=== PATIENT | female | born 1940 | race Two or more races ===

== ENCOUNTER 2018-10-19 17:53 | Emergency (ER) | payer MEDICARE, OTHER ==
[~2018-10-19] VITALS: Ht 162.6 cm; Wt 54.4 kg
--- NOTE | 2018-10-19 18:10 | NUR ---
PT BIB DAUGHTER C/O ZHOU "was seen by Home Health RN and BP high" BP 190/103, PT IS AAOX3, NOT IN RESPIRATORY DISTRESS, KEPT RESTED AND COMFORTABLE, SEEN AND EXAMINE BY DR. PRADO. WILL CONTINUE TO MONITOR.
--- NOTE | 2018-10-19 18:20 | NUR ---
EKG DONE BY CREPE BOX TENDER, LABS DRAWNED AND SENT TO LAB. AWAITING RESULTS.
[2018-10-19 18:25] LABS: BASOPHILS # (AUTO) 0.1 /CMM (0.0-0.2); BASOPHILS % (AUTO) 1.3 % (0.0-2.0); EOSINOPHILS % (AUTO) 3.3 % (0.0-6.0); HEMATOCRIT 31 % (33-45); LYMPHOCYTES # (AUTO) 3.3 /CMM (0.8-4.8); LYMPHOCYTES % (AUTO) 34.6 % (20.0-44.0); MEAN CORPUSCULAR HGB CONC 33 g/dl (31.0-36.0); MEAN CORPUSCULAR VOLUME 90 fL (82-100); MONOCYTES # (AUTO) 0.7 /CMM (0.1-1.30); MONOCYTES % (AUTO) 7.7 % (2.0-12.0); NEUTROPHILS # (AUTO) 5.1 /CMM (1.8-8.9); NEUTROPHILS % (AUTO) 53.1 % (43.0-81.0); PLATELET COUNT (AUTO) 361 /CMM (150-450); RED BLOOD CELL COUNT(AUTO) 3.37 MIL/uL (4.0-5.2); WHITE BLOOD COUNT (AUTO) 9.6 K/uL (4.3-11.0)
[2018-10-19 18:34] LABS: CALCIUM, SERUM 6.8 mg/dL (8.5-10.1); CARBON DIOXIDE 26 mmol/L (21-32); CHLORIDE 99 mmol/L (98-107); CREATININE 3.7 mg/dL (0.6-1.3); GLUCOSE 100 mg/dL (74-106); POTASSIUM 3.6 mmol/L (3.5-5.1); SODIUM SERUM 134 mmol/L (136-145); UREA NITROGEN, BLOOD 61 mg/dL (7-18)
--- NOTE | 2018-10-19 19:25 | NUR ---
LATEST BP 179/87 DR. PRADO AWARE.
--- NOTE | 2018-10-19 19:26 | NUR ---
REPORT GIVEN TO SURVEILLANCE OBSERVER FOR MARIE.
[2018-10-19] MEDS ORDERED: KETOROLAC TROMETHAMINE INJ 30 MG/ML VIAL ONE (19:36)
[2018-10-19] MEDS ORDERED: METOCLOPRAMIDE HCL 10 MG/2 ML VIAL ONE (19:36)
--- NOTE | 2018-10-19 19:47 | NUR ---
PT MEDICATED BY RN PER ER MD ORDER. PT AMBULATORY TO THE BATHROOM WITH STEADY GAIT NOTED.
[2018-10-19] MEDS ORDERED: KETOROLAC TROMETHAMINE INJ 30 MG/ML VIAL IV ONE (20:00)
[2018-10-19] MEDS ORDERED: METOCLOPRAMIDE HCL 10 MG/2 ML VIAL IV ONE (20:00)
--- NOTE | 2018-10-19 20:31 | NUR ---
KYLER TANNER AT BEDSIDE TO RE-EVAL PT.
--- NOTE | 2018-10-19 20:46 | NUR ---
IV removed. Catheter intact and site benign. Pressure and 4x4 applied to site. No bleeding noted.Patient discharged to home in stable condition. Written and verbal after care instructions given. Patient verbalizes understanding of instruction. ambulatory with a steady gait noted. pt family members at bedside to take pt home.
[2018-10-19 20:47] VITALS: BP 176/89
== END 2018-10-19 20:48 | disposition home or self-care (01) ==
LOC: ER 17:53
DX: G43.909 Migraine, unspecified, not intractable, without status migrainosus (principal); D64.9 Anemia, unspecified; I12.9 Hypertensive chronic kidney disease with stage 1 through stage 4 chronic kidney disease, or unspecified chronic kidney disease; N18.9 Chronic kidney disease, unspecified; E78.5 Hyperlipidemia, unspecified; I44.7 Left bundle-branch block, unspecified
CPT/HCPCS: 36415; 71045-TC; 80048-TC; 84484-TC; 85025-TC; 85730-TC; J1885; J2765

== ENCOUNTER 2022-06-26 11:45 | Emergency (ER) | payer MEDICARE, OTHER ==
[~2022-06-26] VITALS: Ht 162.6 cm; Wt 56.7 kg
--- NOTE | 2022-06-26 11:55 | NUR ---
RUDY 88 W/ C/O DIZZINESS WHEN GETTING OFF CAR POST DIALYSIS; FINISHED DIALYSIS TODAY, SCHEDULE -TUE. TO ER BED 1
--- NOTE | 2022-06-26 11:56 | NUR ---
PT NOTED W/ PATTIE AV SHUNT/DIALYSIS SITE W/ DRESSING C/D/I
--- NOTE | 2022-06-26 12:00 | NUR ---
TECH AT BEDSIDE FOR EKG
--- NOTE | 2022-06-26 12:25 | NUR ---
PHLEB AT BEDSIDE FOR BLOOD DRAW.
[2022-06-26 12:36] LABS: BASOPHILS # (AUTO) 0.1 K/uL (0.0-0.2); BASOPHILS % (AUTO) 1.3 % (0.0-2.0); EOSINOPHILS % (AUTO) 1.5 % (0.0-6.0); HEMATOCRIT 39 % (33-45); HEMOGLOBIN 12.5 g/dL (11.5-14.8); LYMPHOCYTES # (AUTO) 1.6 K/uL (0.8-4.8); LYMPHOCYTES % (AUTO) 30.6 % (20.0-44.0); MEAN CORPUSCULAR HGB CONC 32 g/dl (31.0-36.0); MEAN CORPUSCULAR VOLUME 99 fL (82-100); MONOCYTES # (AUTO) 0.5 K/uL (0.1-1.30); MONOCYTES % (AUTO) 9.8 % (2.0-12.0); NEUTROPHILS # (AUTO) 3.1 K/uL (1.8-8.9); NEUTROPHILS % (AUTO) 56.8 % (43.0-81.0); PLATELET COUNT (AUTO) 153 K/uL (150-450); WHITE BLOOD COUNT (AUTO) 5.4 K/uL (4.3-11.0)
[2022-06-26 12:46] LABS: CALCIUM, SERUM 9.2 mg/dL (8.5-10.1); CARBON DIOXIDE 31 mmol/L (21-32); CHLORIDE 99 mmol/L (98-107); GLUCOSE 112 mg/dL (74-106); POTASSIUM 3.9 mmol/L (3.5-5.1); SODIUM SERUM 141 mmol/L (136-145); UREA NITROGEN, BLOOD 13 mg/dL (7-18)
--- NOTE | 2022-06-26 13:10 | NUR ---
PT ABLE TO AMBULATE TO BATHROOM W/ STAND BY ASSIST.
--- NOTE | 2022-06-26 13:52 | NUR ---
ORTHOSTATIC VS TAKEN AND RECORDED
[2022-06-26] MEDS ORDERED: IV NS 0.9% 250 ML BAG IV ONE (15:30)
--- NOTE | 2022-06-26 16:23 | NUR ---
PT'S DTR AT BEDSIDE
--- NOTE | 2022-06-26 16:50 | NUR ---
ORTHOSTATIC VS TAKEN: 1642 LYING BP-126/63 HR-74 1645 SITTING BP-112/64 HR-82 1649 STANDING BP-127/72 HR-88 PT HAS NO COMPLAINT OF PAIN/DIZZINESS. PER DR. ALVARADO'S INSTRUCTIONS, OK TO D/C PT.
--- NOTE | 2022-06-26 17:05 | NUR ---
IV removed. Catheter intact and site benign. Pressure and 4x4 applied to site. No bleeding noted.
[2022-06-26 17:09] VITALS: BP 120/73
--- NOTE | 2022-06-26 17:09 | NUR ---
Patient discharged to home in stable condition. Written and verbal after care instructions given. Patient verbalizes understanding of instruction.
== END 2022-06-26 17:10 | disposition home or self-care (01) ==
LOC: ER 11:52
DX: R42 Dizziness and giddiness (principal); I12.0 Hypertensive chronic kidney disease with stage 5 chronic kidney disease or end stage renal disease; N18.6 End stage renal disease; Z99.2 Dependence on renal dialysis; E78.5 Hyperlipidemia, unspecified; M19.90 Unspecified osteoarthritis, unspecified site
CPT/HCPCS: 99285; 71045; 93005; 85025; 80048; 36415; 84484; J7050

== ENCOUNTER 2023-01-02 14:24 | Inpatient (IN) | payer OTHER, MEDICARE ==
[~2023-01-02] VITALS: Ht 157.5 cm; Wt 59.9 kg
--- NOTE | 2023-01-02 15:00 | NUR ---
BIBS FOR WEAKNESS S/P MISSED DIALYSIS YESTERDAY. A/O X 3, ABLE TO MAKE NEEDS KNOWN, TOLERATING WELL ON ROOM AIR. DIALYSIS SHUNT ON L AC. Addendum: 01/02/23 at 1732 by RASHEL shunt is on R AC
--- NOTE | 2023-01-02 15:53 | NUR ---
22 g R forearm Addendum: 01/02/23 at 1731 annette KISER 22 g L forearm
--- NOTE | 2023-01-02 16:40 | NUR ---
HELICOPTER DISPATCHER AT BEDSIDE
[2023-01-02 16:42] LABS: BASOPHILS # (AUTO) 0.1 K/uL (0.0-0.2); BASOPHILS % (AUTO) 1.2 % (0.0-2.0); EOSINOPHILS % (AUTO) 2.4 % (0.0-6.0); HEMATOCRIT 35 % (33-45); HEMOGLOBIN 11.2 g/dL (11.5-14.8); LYMPHOCYTES # (AUTO) 1.5 K/uL (0.8-4.8); LYMPHOCYTES % (AUTO) 28.3 % (20.0-44.0); MEAN CORPUSCULAR HGB CONC 32 g/dl (31.0-36.0); MEAN CORPUSCULAR VOLUME 98 fL (82-100); MONOCYTES # (AUTO) 0.5 K/uL (0.1-1.30); MONOCYTES % (AUTO) 10.3 % (2.0-12.0); NEUTROPHILS % (AUTO) 57.8 % (43.0-81.0); PLATELET COUNT (AUTO) 163 K/uL (150-450); RED BLOOD CELL COUNT(AUTO) 3.55 MIL/uL (4.0-5.2); WHITE BLOOD COUNT (AUTO) 5.2 K/uL (4.3-11.0)
[2023-01-02] MEDS ORDERED: SEVE800T28 PO (16:47)
[2023-01-02] MEDS ORDERED: FERR325T23 PO (16:47)
[2023-01-02] MEDS ORDERED: ATOR40TA PO (16:47)
[2023-01-02] MEDS ORDERED: LINA145C PO (16:47)
[2023-01-02] MEDS ORDERED: CYCL30DR EACHEYE (16:47)
[2023-01-02] MEDS ORDERED: MEGE40TA5 PO (16:47)
[2023-01-02] MEDS ORDERED: CINA30TA6 PO (16:47)
[2023-01-02] MEDS ORDERED: MECL-173 PO (16:47)
[2023-01-02] MEDS ORDERED: AMLO-212 PO (16:47)
[2023-01-02] MEDS ORDERED: PANT40TA49 PO (16:47)
[2023-01-02] MEDS ORDERED: FLUT16SP (16:47)
[2023-01-02] MEDS ORDERED: CARV6.252 PO (16:47)
[2023-01-02] MEDS ORDERED: ASPI-1420 PO (16:47)
[2023-01-02] MEDS ORDERED: ONDANSETRON HCL/PF 4 MG/2 ML VIAL ONE (17:12)
[2023-01-02 17:13] LABS: ALANINE AMINOTRANSFERASE 13 U/L (12-78); ALBUMIN 3.6 g/dL (3.4-5.0); ALKALINE PHOSPHATASE 229 U/L (46-116); ASPARTATE AMINOTRANSFERASE 20 U/L (15-37); BILIRUBIN,TOTAL 0.5 mg/dL (0.2-1.0); CALCIUM, SERUM 7.5 mg/dL (8.5-10.1); CARBON DIOXIDE 24 mmol/L (21-32); GLUCOSE 121 mg/dL (74-106); TOTAL PROTEIN, SERUM 6.6 g/dL (6.4-8.2); UREA NITROGEN, BLOOD 59 mg/dL (7-18)
[2023-01-02 17:18] LABS: CHLORIDE 98 mmol/L (98-107); SODIUM SERUM 138 mmol/L (136-145)
[2023-01-02 17:25] LABS: POTASSIUM 6.9 mmol/L (3.5-5.1)
[2023-01-02 17:26] LABS: CREATININE 10.1 mg/dL (0.6-1.3)
[2023-01-02] MEDS ORDERED: SODIUM POLYSTYRENE SULFONATE 15 G/60 ML BOTTLE PO ONE (17:30)
[2023-01-02] MEDS ORDERED: INSULIN REGULAR, HUMAN 100 UNIT/ML 10 ML VIAL IV ONE (17:30)
[2023-01-02] MEDS ORDERED: ONDANSETRON HCL/PF - ER 4 MG/2 ML VIAL IV ONE (17:30)
[2023-01-02] MEDS ORDERED: DEXTROSE 50%-WATER 50 ML DISP.SYRIN IV ONE (17:30)
[2023-01-02] MEDS ORDERED: SODIUM BICARBONATE SYR 50 MEQ/50 ML DISP.SYRIN IV ONE (17:30)
[2023-01-02] MEDS ORDERED: Calcium Gluconate 1GM/10ML 4.65 MEQ in IV NS 0.9% 100 ML IV ONE (17:30)
--- NOTE | 2023-01-02 17:31 | NUR ---
COVID SWAB OBTAINED
[2023-01-02] MEDS ORDERED: SODIUM POLYSTYRENE SULFONATE 15 G/60 ML BOTTLE ONE (17:40)
[2023-01-02] MEDS ORDERED: Calcium Gluconate 0.465 MEQ/ML VIAL IV ONE (17:40)
[2023-01-02] MEDS ORDERED: SODIUM BICARBONATE SYR 50 MEQ/50 ML DISP.SYRIN ONE (17:41)
[2023-01-02] MEDS ORDERED: DEXTROSE 50%-WATER 50 ML DISP.SYRIN ONE (17:41)
[2023-01-02] MEDS ORDERED: INSULIN REGULAR, HUMAN 100 UNIT/ML 10 ML VIAL ONE (17:42)
--- NOTE | 2023-01-02 18:35 | NUR ---
DR ALVARADO SPEAKING WITH NEPHRO DR OSBORNE
--- NOTE | 2023-01-02 19:00 | NUR ---
Hyperkalemia cocktail given as ordered, patient monitored before, during, and following administration. Vital signs remained WNL with no signs of discomfort.
--- NOTE | 2023-01-02 19:11 | NUR ---
CALLED ANTONY ROCHA PIPELINE DISPATCH OPERATOR FOR ADMISSION
--- NOTE | 2023-01-02 21:47 | NUR ---
HD treatment completed and tolerated procedure. HD output 1L. VSS AAOX3.
--- NOTE | 2023-01-02 21:50 | NUR ---
s/p HD 1 liter output. Vital signs with in normal limit at this time.
[2023-01-02] MEDS ORDERED: Z GUARD REMEDY 4 OZ OINT TP PRN (22:30)
[2023-01-02] MEDS ORDERED: ONDANSETRON HCL/PF 4 MG/2 ML VIAL IVP PRN (22:30)
[2023-01-02] MEDS ORDERED: MAGNESIUM HYDROXIDE 30 ML UDC PO PRN (22:30)
[2023-01-02] MEDS ORDERED: ZOLPIDEM TARTRATE 5 MG TABLET PO PRN (22:30)
[2023-01-02] MEDS ORDERED: MAG HYDROX/AL HYDROX/SIMETH 30 ML UDC PO PRN (22:30)
--- NOTE | 2023-01-02 22:31 | NUR ---
report given to Cong THOMPSON to continue care.
[2023-01-02 22:45] VITALS: BP 147/68
--- NOTE | 2023-01-02 22:45 | NUR ---
ELECTROTYPE MOLDER ADMITTING NOTES PT ARRIVED TO UNIT VIA GURNEY ASSISTED BY ER STAFF, ABLE TO TRANSFER SELF TO BED. PT'S DAUGHTER ARRIVED SHORTLY THEREAFTER. PT A/O X4, STABLE ON 5L VIA NC WITH NO SOB OR RESPIRATORY DISTRESS. PLACED ON TELE MONITOR SHOWING SR WITH BBB'S, HR 80. VITAL SIGNS: 97.9 F, 78 HR, 20 RR, 99% O2, 147/68 BP. IV ACCESS RFA #22G SL AND R WRIST #22G, PATENT, INTACT, FLUSHING WELL. REINFORCED WITH TAPE. R AV SHUNT IN PLACE, HAD DIALYSIS IN ER, TOTAL OUTPUT OF 1L. BILATERAL LUNG SOUNDS CLEAR. ABDOMEN SOFT, NONDISTENDED, MILD TENDERNESS LLQ. C/O PAIN 5/10 ON LEFT FLANK, SAYS SHE USUALLY TAKES TYLENOL FOR IT PER HER MD. GIVEN ORDERED TYLENOL TO PATIENT PRESCRIBED. SKIN ASSESSMENT PERFORMED, SKIN INTACT WITH MINOR ISSUES NOTED: R LOWER LEG BRUISING. PT STATES SHE GOT IT WHEN SHE ACCIDENTALLY HIT HER BED AT HOME. BELONGINGS DOCUMENTED AND BROUGHT HOME BY DAUGHTER. PT ORIENTED TO UNIT, HOW TO USE CALL LIGHT, MADE COMFORTABLE. SAFETY PRECAUTIONS PUT IN PLACE: BED LOCKED AND IN LOW POSITION, SIDE RAILS UP X3, BED ALARM ON, CALL LIGHT AND TRAY TABLE WITHIN REACH. WILL CONTINUE TO MONITOR AND ASSIST.
--- NOTE | 2023-01-02 22:46 | NUR ---
wheeled patient via gurney accompanied by EMT and RN in no distress. RN assigned to patient at bedside to assume care.
[2023-01-03] MEDS: ACETAMINOPHEN 325 MG TABLET PO PRN ×2 (00:25→17:26)
[2023-01-03 05:00] VITALS: BP 127/61
--- NOTE | 2023-01-03 06:41 | NUR ---
INTERACTIVE MULTIMEDIA DESIGNER CLOSING NOTES PT IN BED SLEEPING AT THIS TIME, EASILY AROUSABLE. A/O X4, GERMAN-SPEAKING. STABLE ON 4L VIA NC WITH NO SOB OR RESPIRATORY DISTRESS. ON TELE MONITOR SHOWING SR WITH INVERTED T WAVES AND PVC'S, HR 76. IV ACCESS LFA #22G SL AND L HAND #22G, PATENT, INTACT, FLUSHING WELL. REINFORCED WITH TAPE. R AV SHUNT IN PLACE, HAD DIALYSIS IN ER, TOTAL OUTPUT OF 1L. ALL CARE PROVIDED AND MEDS TOLERATED WELL. SAFETY PRECAUTIONS MAINTAINED: BED LOCKED AND IN LOW POSITION, SIDE RAILS UP X3, BED ALARM ON, CALL LIGHT AND TRAY TABLE WITHIN REACH. WILL ENDORSE MARIE TO DAY SHIFT NURSE.
[2023-01-03 06:50] LABS: BASOPHILS % (AUTO) 0.5 % (0.0-2.0); HEMATOCRIT 35 % (33-45); HEMOGLOBIN 11.2 g/dL (11.5-14.8); LYMPHOCYTES # (AUTO) 1.5 K/uL (0.8-4.8); LYMPHOCYTES % (AUTO) 23.6 % (20.0-44.0); MEAN CORPUSCULAR HGB CONC 32 g/dl (31.0-36.0); MEAN CORPUSCULAR VOLUME 98 fL (82-100); MONOCYTES # (AUTO) 0.5 K/uL (0.1-1.30); MONOCYTES % (AUTO) 7.2 % (2.0-12.0); NEUTROPHILS # (AUTO) 4.3 K/uL (1.8-8.9); NEUTROPHILS % (AUTO) 67.7 % (43.0-81.0); PLATELET COUNT (AUTO) 139 K/uL (150-450); RED BLOOD CELL COUNT(AUTO) 3.53 MIL/uL (4.0-5.2); WHITE BLOOD COUNT (AUTO) 6.3 K/uL (4.3-11.0)
[2023-01-03 07:14] LABS: CHOLESTEROL 121 mg/dL (<200); HDL CHOLESTEROL 44 mg/dL (40-60); LDL 69 mg/dL (0-99); TRIGLYCERIDES 84 mg/dL (30-150)
[2023-01-03 07:17] LABS: CALCIUM, SERUM 7.9 mg/dL (8.5-10.1); CARBON DIOXIDE 28 mmol/L (21-32); CHLORIDE 100 mmol/L (98-107); CREATININE 7.4 mg/dL (0.6-1.3); GLUCOSE 82 mg/dL (74-106); MAGNESIUM 2.3 mg/dL (1.8-2.4); POTASSIUM 4.9 mmol/L (3.5-5.1); SODIUM SERUM 142 mmol/L (136-145); UREA NITROGEN, BLOOD 35 mg/dL (7-18)
--- NOTE | 2023-01-03 07:20 | NUR ---
RN OPENING NOTE PT IN BED AWAKE, A/O X4, ROMANIAN-SPEAKING. STABLE ON 4L VIA NC WITH NO SOB OR RESPIRATORY DISTRESS. IV ACCESS LFA #22G SL AND L HAND #22G, PATENT, INTACT, FLUSHING WELL. REINFORCED WITH TAPE. R AV SHUNT IN PLACE, HAD DIALYSIS SESSION YESTERDAY, TOTAL OUTPUT OF 1L. BED LOCKED AND IN LOW POSITION, SIDE RAILS UP X3, BED ALARM ON, CALL LIGHT AND TRAY TABLE WITHIN REACH. WILL CONTINUE TO MONITOR.
[2023-01-03 09:00] VITALS: BP 127/61
[2023-01-03] MEDS ORDERED: PANTOPRAZOLE 40 MG VIAL IV SCH (09:00)
[2023-01-03] MEDS: HEPARIN SODIUM, PORCINE 5000 UNITS/1 ML VIAL SQ SCH ×2 (09:09→21:04)
[2023-01-03 13:00] VITALS: BP 121/56
[2023-01-03] MEDS ORDERED: FLUTICASONE PROPIONATE 16 GM BOTTLE NS PRN (15:30)
[2023-01-03] MEDS ORDERED: MECLIZINE HCL 25 MG TABLET PO PRN (15:30)
[2023-01-03 17:00] VITALS: BP 141/64
[2023-01-03] MEDS: CARVEDILOL 6.25 MG TABLET PO SCH (17:26)
[2023-01-03] MEDS: MEGESTROL ACETATE 40 MG TABLET PO SCH (17:27)
[2023-01-03] MEDS: SEVELAMER CARBONATE 800 MG TABLET PO SCH (17:27)
[2023-01-03] MEDS: FERROUS SULFATE (325 MG) 325 MG/TAB TABLET PO SCH (17:27)
--- NOTE | 2023-01-03 19:05 | NUR ---
RN CLOSING NOTE PATIENT SITTING ON THE EDGE OF THE BED, A/O X4, IRISH-SPEAKING. STABLE ON 4L VIA NC WITH NO SOB OR RESPIRATORY DISTRESS. IV ACCESS LFA #22G SL AND L HAND #22G, PATENT, INTACT, FLUSHING WELL. R AV HD SHUNT IN PLACE, PT UNDERWENT DIALYSIS SESSION TODAY FOR TWO HOURS, TOTAL OUTPUT OF 2L. BED LOCKED AND IN LOW POSITION, SIDE RAILS UP X3, BED ALARM ON, CALL LIGHT AND TRAY TABLE WITHIN REACH. WILL ENDORSE TO THE NEXT SHIFT FOR MARIE.
--- NOTE | 2023-01-03 20:55 | NUR ---
RN OPENING NOTE PATIENT ASLEEP IN BED EASILY WOKEN UP. A/O X4, MALAWIAN-SPEAKING. STABLE ON 2L VIA NC WITH NO SOB OR RESPIRATORY DISTRESS. IV ACCESS LFA #22G SL AND L HAND #22G, PATENT, INTACT, FLUSHING WELL. R AV HD SHUNT IN PLACE, PT UNDERWENT DIALYSIS SESSION TODAY TOTAL OUTPUT OF 2L. BED LOCKED AND IN LOW POSITION, SIDE RAILS UP X3, BED ALARM ON, CALL LIGHT AND TRAY TABLE WITHIN REACH.
[2023-01-03 21:00] VITALS: BP 127/69
[2023-01-04 01:01] VITALS: BP 133/63
[2023-01-04 05:23] VITALS: BP 124/63
[2023-01-04 06:15] LABS: BASOPHILS % (AUTO) 0.9 % (0.0-2.0); EOSINOPHILS % (AUTO) 2.2 % (0.0-6.0); HEMATOCRIT 35 % (33-45); HEMOGLOBIN 11.3 g/dL (11.5-14.8); LYMPHOCYTES # (AUTO) 1.7 K/uL (0.8-4.8); LYMPHOCYTES % (AUTO) 36.2 % (20.0-44.0); MEAN CORPUSCULAR HGB CONC 32 g/dl (31.0-36.0); MEAN CORPUSCULAR VOLUME 98 fL (82-100); MONOCYTES # (AUTO) 0.5 K/uL (0.1-1.30); MONOCYTES % (AUTO) 10.4 % (2.0-12.0); NEUTROPHILS # (AUTO) 2.3 K/uL (1.8-8.9); NEUTROPHILS % (AUTO) 50.3 % (43.0-81.0); PLATELET COUNT (AUTO) 139 K/uL (150-450); WHITE BLOOD COUNT (AUTO) 4.6 K/uL (4.3-11.0)
[2023-01-04 06:39] LABS: CALCIUM, SERUM 8.4 mg/dL (8.5-10.1); CARBON DIOXIDE 29 mmol/L (21-32); CHLORIDE 99 mmol/L (98-107); CREATININE 6.7 mg/dL (0.6-1.3); GLUCOSE 91 mg/dL (74-106); MAGNESIUM 2.2 mg/dL (1.8-2.4); PHOSPHORUS 5.9 mg/dL (2.5-4.9); POTASSIUM 4.5 mmol/L (3.5-5.1); SODIUM SERUM 142 mmol/L (136-145); UREA NITROGEN, BLOOD 35 mg/dL (7-18)
--- NOTE | 2023-01-04 06:55 | NUR ---
RN CLOSING NOTE PATIENT ASLEEP IN BED EASILY WOKEN UP. A/O X4, WELSH-SPEAKING. STABLE ON ROOM AIR WITH NO SOB OR RESPIRATORY DISTRESS. IV ACCESS LFA #22G SL AND L HAND #22G, PATENT, INTACT, FLUSHING WELL. R AV HD SHUNT IN PLACE. BED LOCKED AND IN LOW POSITION, SIDE RAILS UP X3, BED ALARM ON, CALL LIGHT AND TRAY TABLE WITHIN REACH. WILL ENDORSE CARE TO DAY SHIFT NURSE.
[2023-01-04] MEDS ORDERED: PANTOPRAZOLE 40 MG TABLET.DR PO SCH (07:30)
--- NOTE | 2023-01-04 07:59 | NUR ---
COOK VACUUM KETTLE OPENING NOTE RECEIVED PT IN BED ASLEEP. EASILY AROUSED. A/O X4, KHMER-SPEAKING. STABLE ON ROOM AIR WITH NO SOB OR RESPIRATORY DISTRESS. IV ACCESS LFA #22G SL AND L HAND #22G, PATENT, INTACT, AND FLUSHING WELL. R AV HD SHUNT IN PLACE. BED LOCKED AND IN LOWEST POSITION, SIDE RAILS UP X3, BED ALARM ON, CALL LIGHT AND TRAY TABLE WITHIN REACH. WILL CONTINUE TO MONITOR.
[2023-01-04] MEDS: SEVELAMER CARBONATE 800 MG TABLET PO SCH (08:29)
[2023-01-04] MEDS: FERROUS SULFATE (325 MG) 325 MG/TAB TABLET PO SCH (08:29)
[2023-01-04] MEDS: MEGESTROL ACETATE 40 MG TABLET PO SCH (08:29)
[2023-01-04] MEDS: HEPARIN SODIUM, PORCINE 5000 UNITS/1 ML VIAL SQ SCH (08:31)
[2023-01-04] MEDS: CARVEDILOL 6.25 MG TABLET PO SCH (08:38)
[2023-01-04 09:00] VITALS: BP 138/70
[2023-01-04] MEDS ORDERED: ASPIRIN EC 81 MG TABLET.DR PO SCH (09:00)
[2023-01-04] MEDS ORDERED: ATORVASTATIN 40 MG TABLET PO SCH (09:00)
[2023-01-04] MEDS ORDERED: Medication Not On Formulary EA (Linaclotide (Linzess) 145 MCG) PO SCH (09:00)
[2023-01-04] MEDS ORDERED: CINACALCET HCL 30 MG TABLET PO SCH (09:00)
[2023-01-04] MEDS ORDERED: AMLODIPINE BESYLATE 5 MG TABLET PO SCH (09:00)
--- NOTE | 2023-01-04 14:58 | NUR ---
COMPENSATION AND BENEFITS ADVISOR NOTES PATIENT DISCHARGED TO HOME IN STABLE CONDITION.
== END 2023-01-04 16:13 | disposition home or self-care (01) | DRG 425 ==
LOC: ER 14:51 → TELE1 22:28
PROVIDERS: ADMIT Nurse Practitioner Acute Care; ATTEND Nurse Practitioner Acute Care
DX: E87.5 Hyperkalemia (principal); J96.91 Respiratory failure, unspecified with hypoxia; U07.1 COVID-19; I12.0 Hypertensive chronic kidney disease with stage 5 chronic kidney disease or end stage renal disease; E11.22 Type 2 diabetes mellitus with diabetic chronic kidney disease; E87.70 Fluid overload, unspecified; N18.6 End stage renal disease; E83.89 Other disorders of mineral metabolism; E78.5 Hyperlipidemia, unspecified; M19.90 Unspecified osteoarthritis, unspecified site
CPT/HCPCS: 36415; 71045-TC; 80048-TC; 80061-TC; 80076-TC; 83735-TC; 84100-TC; 84484-TC; 85025-TC; 86706; 87081-TC; 87340; 90935-TC; C9113; C9803; G0378; J0610; J1644; J1815; J2405; J3490; J7030

== ENCOUNTER 2023-03-02 09:17 | Inpatient (IN) | payer OTHER, MEDICARE ==
[~2023-03-02] VITALS: Ht 157.5 cm; Wt 59.9 kg
[~2023-03-02 09:17] MED LIST: AMLO-212 PO; ASPI-1420 PO; ATOR40TA PO; CARV6.252 PO; CINA30TA6 PO; CYCL30DR EACHEYE; FERR325T23 PO; FLUT16SP; LINA145C PO; MECL-173 PO; MEGE40TA5 PO; PANT40TA49 PO; SEVE800T28 PO
--- NOTE | 2023-03-02 09:25 | NUR ---
BIB RA 39 FROM HOME,FAMILY CALLED FOR AMS,EMS NOTED FACIAL DROOP UPON THEIR ARRIVAL. NOTED BLD SUGAR 130. DR PAIGE AT BEDSIDE FOR EVAL, EMT PUT PT ON BEDSIDE MONITOR AND DID EKG. PT IS AWAKE UPPER SORBIAN SPEAKING
--- NOTE | 2023-03-02 09:32 | NUR ---
JAKY SHEFFIELD AT FOREARM, AND SENT TO LAB
--- NOTE | 2023-03-02 09:34 | NUR ---
COVID SWAB COLLECTED AND SENT TO LAB
--- NOTE | 2023-03-02 10:29 | NUR ---
MRSA DONE AND SENT TO LAB
--- NOTE | 2023-03-02 10:34 | NUR ---
MOVE SHEET SUBMITTED.
--- NOTE | 2023-03-02 10:37 | NUR ---
PROJECT SCIENTIST AT BEDSIDE REDRAWING BLD DUE TO PRVIOUS BLD WAS HEMOLYZED.
[2023-03-02] MEDS ORDERED: LORAZEPAM INJ 2 MG/ML VIAL IV ONE (10:45)
--- NOTE | 2023-03-02 10:50 | NUR ---
ATIVAN GIVEN IVP LT FOREARM ORDERED.
--- NOTE | 2023-03-02 10:50 | NUR ---
PT MINISTERIO REA, DR PAIGE AT BEDSIDE GAVE VO ATIVAN 1MG IVP
[2023-03-02] MEDS ORDERED: LORAZEPAM INJ 2 MG/ML VIAL ONE (10:51)
[2023-03-02] MEDS ORDERED: LATA2.5D15 EACHEYE (10:53)
[2023-03-02] MEDS ORDERED: CALC0.253 PO (10:53)
[2023-03-02] MEDS ORDERED: POLY15DR12 EACHEYE (10:53)
[2023-03-02] MEDS ORDERED: GABA300C PO (10:53)
[2023-03-02] MEDS ORDERED: ALBU18HF2 INH (10:53)
[2023-03-02] MEDS ORDERED: LEVETIRACETAM (500MG) 500 MG in IV NS 0.9% 100 ML IV SCH (11:00)
[2023-03-02] MEDS ORDERED: LEVETIRACETAM SOL (5 ML) 100 MG/ML UDC ONE (11:02)
[2023-03-02 11:11] LABS: BASOPHILS # (AUTO) 0.1 K/uL (0.0-0.2); BASOPHILS % (AUTO) 0.9 % (0.0-2.0); EOSINOPHILS % (AUTO) 2.3 % (0.0-6.0); HEMATOCRIT 36 % (33-45); HEMOGLOBIN 11.8 g/dL (11.5-14.8); LYMPHOCYTES # (AUTO) 2.4 K/uL (0.8-4.8); LYMPHOCYTES % (AUTO) 43.2 % (20.0-44.0); MEAN CORPUSCULAR HGB CONC 33 g/dl (31.0-36.0); MEAN CORPUSCULAR VOLUME 98 fL (82-100); MONOCYTES # (AUTO) 0.7 K/uL (0.1-1.30); MONOCYTES % (AUTO) 11.7 % (2.0-12.0); NEUTROPHILS # (AUTO) 2.4 K/uL (1.8-8.9); NEUTROPHILS % (AUTO) 41.9 % (43.0-81.0); PLATELET COUNT (AUTO) 194 K/uL (150-450); RED BLOOD CELL COUNT(AUTO) 3.66 MIL/uL (4.0-5.2); WHITE BLOOD COUNT (AUTO) 5.6 K/uL (4.3-11.0)
[2023-03-02 11:19] LABS: CALCIUM, SERUM 9.1 mg/dL (8.5-10.1); CARBON DIOXIDE 27 mmol/L (21-32); CHLORIDE 99 mmol/L (98-107); CREATININE 6.8 mg/dL (0.6-1.3); GLUCOSE 126 mg/dL (74-106); POTASSIUM 4.8 mmol/L (3.5-5.1); SODIUM SERUM 141 mmol/L (136-145); UREA NITROGEN, BLOOD 31 mg/dL (7-18)
--- NOTE | 2023-03-02 11:20 | NUR ---
FARHAD [phone].
[2023-03-02 11:25] LABS: ALANINE AMINOTRANSFERASE 12 U/L (12-78); ALBUMIN 3.8 g/dL (3.4-5.0); ALKALINE PHOSPHATASE 277 U/L (46-116); ASPARTATE AMINOTRANSFERASE 14 U/L (15-37); BILIRUBIN,DIRECT 0.1 mg/dL (0.0-0.2); BILIRUBIN,TOTAL 0.6 mg/dL (0.2-1.0); TOTAL PROTEIN, SERUM 7.2 g/dL (6.4-8.2)
--- NOTE | 2023-03-02 11:29 | NUR ---
pt is on non rebreather mask, asleep and calm with grand daugther at bedside
--- NOTE | 2023-03-02 11:31 | NUR ---
[facility] CALLED, CORE MAN PAGED.
[2023-03-02 11:46] LABS: THYROID STIMULATING HORMONE 2.141 uIU/mL (0.358-3.74)
--- NOTE | 2023-03-02 11:55 | NUR ---
GOT BED 117-2 ADMITTING AWARE.
--- NOTE | 2023-03-02 12:27 | NUR ---
pt on nasal canulla at 3L POX 98, CHANGED FROM NON REBREATHER MASK AT 10.
--- NOTE | 2023-03-02 12:35 | NUR ---
GAVE REPORT TO JAY GAMEZ FOR MARIE
[2023-03-02] MEDS ORDERED: CINA30TA6 PO (12:42)
[2023-03-02] MEDS ORDERED: CYCL30DR EACHEYE (12:42)
--- NOTE | 2023-03-02 12:50 | NUR ---
PATIENT RECEIVED FROM ER VIA [facility], ALERT AND ORIENTED X2, TAJIK SPEAKING ONLY, TRANSLATED BY TITI KUHN TAJIK SPEAKING STAFF, DENIES ANY PAIN AT THIS MOMENT. ON 3LPM 02 VIA NM, TOLERATING WELL, NO SOB NOTED, RESPIRATION EVEN AND UNLABORED. NOTED WITH RIGHT UPPER ARM FISTULA, POSITIVE FOR BRUIT AND THRILL. NO BP AND BLOOD DRAW ON THE RIGHT ARM. LEFT FOREARM PIV NOTED PATENT AND INTACT, FLUSHES WELL. ATTACHED TO TELE MONITOR WITH SR. NO EPISODE OF SEIZURE AT THIS MOMENT. ORIENTED TO THE USE OF CALL LIGHT AND BED REGULATOR. BED ALARM ON. SAFETY MEASURES IN PLACED. CALL LIGHT AND TABLE WITHIN REACH. PLAN OF CARE CONTINUE.
--- NOTE | 2023-03-02 15:15 | NUR ---
TEXTED DR. REYNA FOR MRI APPROVAL.
[2023-03-02] MEDS ORDERED: LORAZEPAM INJ 2 MG/ML VIAL IV PRN (16:30)
--- NOTE | 2023-03-02 16:31 | NUR ---
TROPONIN LEVEL IS 168, FROM 54, DR. VARELA NOTIFIED,AWAITING FOR ORDERS.
[2023-03-02 17:00] VITALS: BP 122/55
--- NOTE | 2023-03-02 17:14 | NUR ---
PATIENT INITIAL EJECTION FRACTION ESTIMATED 25-30 PERCENT. NURSE WANDA NOTIFIED.
[2023-03-02] MEDS: LEVETIRACETAM (500MG) 500 MG in IV NS 0.9% 100 ML IV SCH (17:38)
--- NOTE | 2023-03-02 17:46 | NUR ---
PATIENT IS OUT FOR MRI.
--- NOTE | 2023-03-02 18:30 | NUR ---
ECHO RESULT RECEIVED DR. VARELA NOTIFIED, AWAITING FOR RESPOND
--- NOTE | 2023-03-02 18:33 | NUR ---
PATIENT BACK FROM MRI.
--- NOTE | 2023-03-02 18:41 | NUR ---
MOTORCYCLE BUILDER CLOSING NOTES PATIENT IN BED AWAKE, ALERT/ORIENTED. DENIES ANY PAIN AT THIS MOMENT. ON 3LPM 02 VIA NC, TOLERATING WELL, NO SOB NOTED, RESPIRATION EVEN AND UNLABORED. NO C/O PAIN OR DISCOMFORT AT THIS TIME/ NO ACUTE DISTRESS. RIGHT UPPER ARM FISTULA POSITIVE FOR BRUIT AND THRILL, NO BLEEDING NOTED. NO SEIZURE EPISODE NOTED AT THIS TIME. ON TELE MONITOR SR. LEFT FA PIV NOTED PATENT AND INTACT FLUSHES WELL, WITH KEPPRA RUNNING ORDERED. ALL SAFETY MEASURES IN PLACE. BED IN LOWEST POSITION AND LOCKED. BED ALARM ON. SIDE RAILS UP X3, PLACE CALL LIGHT WITHIN REACH. WILL ENDORSE TO NIGHT NURSE FOR MARIE.
--- NOTE | 2023-03-02 18:59 | NUR ---
INFORMED DR. VARELA OF THE VTE SCORE OF 3.
[2023-03-02] MEDS ORDERED: ALBUTEROL FS 2.5 MG/0.5 ML VIAL.NEB IH PRN (19:00)
[2023-03-02] MEDS ORDERED: FLUTICASONE PROPIONATE 16 GM BOTTLE NS PRN (19:00)
[2023-03-02] MEDS ORDERED: MECLIZINE HCL 25 MG TABLET PO PRN (19:00)
--- NOTE | 2023-03-02 19:01 | NUR ---
RECEIVED NEW ORDER FROM DR. VARELA LOVENOX 40 SC Q24HR, NOTED AND CARRIED OUT.
[2023-03-02] MEDS: ASPIRIN EC 81 MG TABLET.DR PO SCH (19:02)
--- NOTE | 2023-03-02 19:10 | NUR ---
RN NOTE Received pt in bed, alert, awake and verbally responsive. Denies pain or discomfort at this time. On 3L O2 via NC, well tolerated, no sob, no acute resp distress, no c/o chest pain, face symmetrical, no facial drooping noted. PIV patent, dressing CDI, on SL, flushes well. Safety precaution implemented, call light within easy reach. FAmily at bedside. Will cont plan of care
[2023-03-02] MEDS ORDERED: POLYVINYL ALCOHOL 15 ML BOTTLE EACHEYE PRN (19:30)
[2023-03-02] MEDS: ACETAMINOPHEN 325 MG TABLET PO PRN (19:33)
[2023-03-02 21:00] VITALS: BP 121/68
[2023-03-02] MEDS: LATANOPROST EYE DROP 0.005% 2.5 ML BOTTLE EACHEYE SCH (21:24)
[2023-03-02] MEDS: GABAPENTIN 300 MG CAPSULE PO SCH (21:24)
--- NOTE | 2023-03-02 21:55 | NUR ---
2155 Critical troponin result 190 relayed to SALES RECRUITMENT SPECIALIST [facility] with no order given.
[2023-03-02] MEDS: HEPARIN SODIUM, PORCINE 5000 UNITS/1 ML VIAL SQ SCH (22:04)
[2023-03-03] VITALS (7 sets, daily range): BP systolic 107–132; BP diastolic 54–70
[2023-03-03] MEDS: LEVETIRACETAM (500MG) 500 MG in IV NS 0.9% 100 ML IV SCH ×2 (04:14→18:17)
[2023-03-03 05:44] LABS: BASOPHILS % (AUTO) 0.9 % (0.0-2.0); EOSINOPHILS % (AUTO) 2.8 % (0.0-6.0); HEMATOCRIT 33 % (33-45); HEMOGLOBIN 10.6 g/dL (11.5-14.8); LYMPHOCYTES # (AUTO) 1.8 K/uL (0.8-4.8); MEAN CORPUSCULAR HGB CONC 32 g/dl (31.0-36.0); MEAN CORPUSCULAR VOLUME 98 fL (82-100); MONOCYTES # (AUTO) 0.7 K/uL (0.1-1.30); MONOCYTES % (AUTO) 13.3 % (2.0-12.0); NEUTROPHILS # (AUTO) 2.7 K/uL (1.8-8.9); PLATELET COUNT (AUTO) 157 K/uL (150-450); RED BLOOD CELL COUNT(AUTO) 3.34 MIL/uL (4.0-5.2); WHITE BLOOD COUNT (AUTO) 5.5 K/uL (4.3-11.0)
[2023-03-03 06:03] LABS: CALCIUM, SERUM 8.6 mg/dL (8.5-10.1); CARBON DIOXIDE 27 mmol/L (21-32); CHLORIDE 99 mmol/L (98-107); GLUCOSE 88 mg/dL (74-106); POTASSIUM 5.2 mmol/L (3.5-5.1); SODIUM SERUM 133 mmol/L (136-145); UREA NITROGEN, BLOOD 39 mg/dL (7-18)
[2023-03-03 06:09] LABS: CREATININE 8.2 mg/dL (0.6-1.3)
[2023-03-03 06:17] LABS: CHOLESTEROL 132 mg/dL (<200); HDL CHOLESTEROL 42 mg/dL (40-60); LDL 85 mg/dL (0-99); THYROID STIMULATING HORMONE 0.751 uIU/mL (0.358-3.74); TRIGLYCERIDES 87 mg/dL (30-150)
[2023-03-03] MEDS ORDERED: PANTOPRAZOLE 40 MG TABLET.DR PO SCH (07:30)
--- NOTE | 2023-03-03 08:04 | NUR ---
TUBE WINDER HAND NOTE PATIENT IN BED PT IS A/OX4 ON 3L; NC TOLERATING WELL SATING 98%, HAS IV ACCESS ON THE LEFT FA 20G INTACT AND FLUSHED WELL , ON TELE MONITOR CURRENTLY READING SR AT [address], BED IS AT LOWEST POSITION, CALL LIGHT WITHIN REACH AND INSTRUCTED TO CALL FOR ASSISTANCE, KEPT DRY AND CLEAN, WILL CONT TO MONITOR CLOSELY CARE.ASSISTED TO BSC ABLE TO URINATE WELL RT UPPER ARM WITH AV FISTULA WITH BRUIT SOUND, WILL MONITOR
[2023-03-03] MEDS: CALCITRIOL 0.25 MCG CAPSULE PO SCH (08:58)
[2023-03-03] MEDS: ATORVASTATIN 40 MG TABLET PO SCH (08:58)
[2023-03-03] MEDS: MEGESTROL ACETATE 40 MG TABLET PO SCH ×2 (08:59→18:24)
[2023-03-03] MEDS: FERROUS SULFATE (325 MG) 325 MG/TAB TABLET PO SCH ×2 (08:59→18:23)
[2023-03-03] MEDS: ASPIRIN EC 81 MG TABLET.DR PO SCH (08:59)
[2023-03-03] MEDS: AMLODIPINE BESYLATE 5 MG TABLET PO SCH (08:59)
[2023-03-03] MEDS: CARVEDILOL 6.25 MG TABLET PO SCH ×2 (09:00→18:23)
[2023-03-03] MEDS ORDERED: Medication Not On Formulary EA (Linaclotide (Linzess) 145 MCG) PO SCH (09:00)
--- NOTE | 2023-03-03 09:00 | NUR ---
AVIONICS MANAGER NOTE ST AT BEDSIDE SWALLOW EVAL PASS , ALSO REPORTED TO DR WINKLER AND DR JONES NEUROLOGIST MRI RESULT REPORTED ,NO NEW ORDER AT THIS TIME
[2023-03-03] MEDS: PANTOPRAZOLE 40 MG TABLET.DR PO SCH (09:04)
[2023-03-03] MEDS: HEPARIN SODIUM, PORCINE 5000 UNITS/1 ML VIAL SQ SCH ×2 (09:04→21:32)
[2023-03-03] MEDS: CINACALCET HCL 30 MG TABLET PO SCH (09:06)
[2023-03-03] MEDS: ACETAMINOPHEN 325 MG TABLET PO PRN (10:17)
[2023-03-03] MEDS: CLOPIDOGREL BISULFATE 75 MG TABLET PO SCH (11:05)
--- NOTE | 2023-03-03 11:46 | NUR ---
tele rnnote seen by Patience rn juice mixer neurologist with order cta angio, per dr castillo will do hd
[2023-03-03] MEDS ORDERED: IOHEXOL-350 100 ML VIAL IV ONE (12:35)
[2023-03-03] MEDS ORDERED: CT SWABBABLE VALVE TRANS SET 1 EA INFUS.SET MC ONE (12:35)
--- NOTE | 2023-03-03 12:40 | NUR ---
CABLE TOOL OPERATOR NOTE PER KEYSHAWN RN CURER FOAM RUBBER HOLD OFF FOR PT TODAY AND OK OT, EEG DONE ORDERED
--- NOTE | 2023-03-03 14:19 | NUR ---
SERVER SERVICE ASSISTANT NOTE CTA BRAIN AND CAROTID DONE ORDERED ,HD WILL BE DONE LATTER AFTERNOON, SPOKE WITH EDIE CANTU NURSE Addendum: 03/03/23 at 1442 by JOSEY DINH RN RESTING COMFORTABLY, NOT IN DISTRESS OR DISCOMFORT, CALL LIGHT MONICA RIBERA
--- NOTE | 2023-03-03 14:56 | NUR ---
Stroke Consult: bindery worker consult requested for stroke. bindery worker met with patient and conducted a PHQ-9 (Post Stroke Depression Screening) in which the patient score of a level of 3 for depression. Patient does not require a psychiatric consult at this time.
[2023-03-03] MEDS ORDERED: EPOETIN ALFA-EPBX 4,000 UNIT/ML VIAL IV SCH (15:00)
--- NOTE | 2023-03-03 15:00 | NUR ---
Social Work Stroke Resources: cinder pit worker met with patient and provided stroke referrals such as: Stroke Family Warmline at (1-143-9-STROKE) and additional information on caring for a stroke survivor ( ). cinder pit worker also educated patient on the signs of Stroke and to immediately call 911. cinder pit worker provided education on the signs of stroke and provided educational packet with information: Dietary food, what stroke is, risks, emotional support, finding support, medical management, and effects of stroke.
--- NOTE | 2023-03-03 15:54 | NUR ---
CIGARETTE PACKAGE EXAMINER NOTE ON HD STARTED
--- NOTE | 2023-03-03 16:59 | NUR ---
SAAS ARCHITECT NOTE HD NURSE CALLED TO DR OSBORNE THEATRICAL AGENT WITH ORDER ALBUMIN IV PRN DURING HD WILL F\U
[2023-03-03] MEDS ORDERED: ALBUMIN 25% 25 GM in PREMIX 1 EA IV PRN (17:00)
--- NOTE | 2023-03-03 17:47 | NUR ---
teleprinter installer note on hd at this time, able to give Keppra iv ,will do latter on
--- NOTE | 2023-03-03 18:07 | NUR ---
telephone service adviser note unable to give po Meds for 1700 patient on hd Addendum: 03/03/23 at 1811 by JOSEY DINH RN patient more alert and able to answer question correctly
--- NOTE | 2023-03-03 18:29 | NUR ---
agent telegrapher note hd competed 2l of fluids removed , bp152/65 hr 66 , patient alert awake daughter at bedside , on 3l nc no sob noted on tele monitor sr hr 66 , lt fa and lt hand hl intact and flushed well , rt upper arm with av fistula with bruit sound , no bleeding noted at this tie , bed in lowest and locked Position , with dvt pumps both legs , will cont to monitor closely closely, call light within raech
--- NOTE | 2023-03-03 19:45 | NUR ---
CATERING CHEF NOTE RECEIVED PATIENT IN BED, AWAKE, ALERT & ORIENTED X 2-3. PATIENT ON 2 LITERS OF OXYGEN VIA NC, NO S/S OF RESPIRATORY DISTRESS. NSR ON THE MONITOR. IV ACCESSES ON LFA GAUGE 20 AND LEFT HAND GAUGE 22, BOTH PATENT AND INTACT, FLUSHED WELL. RIGHT UPPER ARM WITH AV FISTULA, BRUIT IS AUDIBLE UPON AUSCULTATION, NO BLEEDING NOTED AT THE SITE. BED LOCKED IN LOWEST POSITION, SR UP X2, HOB ELEVATED, SCD PUMPS PLACED ON BOTH LEGS, CALL LIGHT AND BELONGINGS ARE WITHIN REACH. WILL CONTINUE TO MONITOR.
[2023-03-03] MEDS: LATANOPROST EYE DROP 0.005% 2.5 ML BOTTLE EACHEYE SCH (21:32)
[2023-03-03] MEDS: GABAPENTIN 300 MG CAPSULE PO SCH (21:33)
[2023-03-04 01:00] VITALS: BP 118/40
[2023-03-04] MEDS: LEVETIRACETAM (500MG) 500 MG in IV NS 0.9% 100 ML IV SCH (04:50)
[2023-03-04 05:00] VITALS: BP 124/63
--- NOTE | 2023-03-04 06:50 | NUR ---
MACHINIST OUTSIDE CLOSING NOTE PATIENT IN BED, AWAKE, ALERT & ORIENTED X 2-3. PATIENT ON 1 LITER OF OXYGEN VIA NC, NO S/S OF RESPIRATORY DISTRESS, O2 SATURATION 96%. NSR ON THE MONITOR, HR 70. IV ACCESSES ON LFA GAUGE 20 AND LEFT HAND GAUGE 22, BOTH PATENT AND INTACT, FLUSHING WELL. RIGHT UPPER ARM WITH AV FISTULA, BRUIT IS AUDIBLE UPON AUSCULTATION, NO BLEEDING NOTED AT THE SITE. BLE WEAKNESS. BED LOCKED IN LOWEST POSITION, SR UP X2, HOB ELEVATED, SCD PUMPS PLACED ON BOTH LEGS, CALL LIGHT AND BELONGINGS ARE WITHIN REACH. WILL ENDORSE TO THE NEXT SHIFT.
[2023-03-04 06:52] LABS: BASOPHILS % (AUTO) 0.9 % (0.0-2.0); EOSINOPHILS % (AUTO) 3.2 % (0.0-6.0); HEMATOCRIT 32 % (33-45); HEMOGLOBIN 10.1 g/dL (11.5-14.8); LYMPHOCYTES # (AUTO) 1.6 K/uL (0.8-4.8); LYMPHOCYTES % (AUTO) 32.3 % (20.0-44.0); MEAN CORPUSCULAR HGB CONC 31 g/dl (31.0-36.0); MEAN CORPUSCULAR VOLUME 100 fL (82-100); MONOCYTES # (AUTO) 0.6 K/uL (0.1-1.30); MONOCYTES % (AUTO) 12.3 % (2.0-12.0); NEUTROPHILS # (AUTO) 2.6 K/uL (1.8-8.9); NEUTROPHILS % (AUTO) 51.3 % (43.0-81.0); PLATELET COUNT (AUTO) 141 K/uL (150-450); RED BLOOD CELL COUNT(AUTO) 3.22 MIL/uL (4.0-5.2)
[2023-03-04 07:25] LABS: CALCIUM, SERUM 8.5 mg/dL (8.5-10.1); CARBON DIOXIDE 22 mmol/L (21-32); CHLORIDE 108 mmol/L (98-107); CREATININE 5.9 mg/dL (0.6-1.3); GLUCOSE 102 mg/dL (74-106); MAGNESIUM 2.7 mg/dL (1.8-2.4); PHOSPHORUS 4.2 mg/dL (2.5-4.9); POTASSIUM 4.8 mmol/L (3.5-5.1); SODIUM SERUM 141 mmol/L (136-145); UREA NITROGEN, BLOOD 21 mg/dL (7-18)
--- NOTE | 2023-03-04 08:10 | NUR ---
MATERIALS MANAGEMENT CLERK OPENING NOTE PATIENT IN BED, AWAKE, ALERT & ORIENTED X 2-3. PATIENT ON 1 LITER OF OXYGEN VIA NC, NO S/S OF RESPIRATORY DISTRESS, O2 AT 1LPM SATURATION 98%.ON TELE MONITOR, SR HR 85. IV ACCESSES ON LFA GAUGE 20 AND LEFT HAND GAUGE 22, BOTH PATENT AND INTACT, FLUSHING WELL. RIGHT UPPER ARM WITH AV FISTULA, BRUIT IS AUDIBLE UPON AUSCULTATION, NO BLEEDING NOTED AT THE SITE. BLE WEAKNESS. BED LOCKED IN LOWEST POSITION, SR UP X2, HOB ELEVATED, SCD PUMPS PLACED ON BOTH LEGS, CALL LIGHT AND BELONGINGS ARE WITHIN REACH. WILL CONTINUE TO MONITOR.
[2023-03-04] MEDS: PANTOPRAZOLE 40 MG TABLET.DR PO SCH (08:25)
[2023-03-04] MEDS: FERROUS SULFATE (325 MG) 325 MG/TAB TABLET PO SCH ×2 (08:43→16:28)
[2023-03-04] MEDS: CLOPIDOGREL BISULFATE 75 MG TABLET PO SCH (08:43)
[2023-03-04] MEDS: CINACALCET HCL 30 MG TABLET PO SCH (08:43)
[2023-03-04] MEDS: ASPIRIN EC 81 MG TABLET.DR PO SCH (08:43)
[2023-03-04] MEDS: CALCITRIOL 0.25 MCG CAPSULE PO SCH (08:44)
[2023-03-04] MEDS: ATORVASTATIN 40 MG TABLET PO SCH (08:44)
[2023-03-04] MEDS: AMLODIPINE BESYLATE 5 MG TABLET PO SCH (08:44)
[2023-03-04] MEDS: CARVEDILOL 6.25 MG TABLET PO SCH ×2 (08:44→16:27)
[2023-03-04] MEDS: MEGESTROL ACETATE 40 MG TABLET PO SCH ×2 (08:47→16:27)
[2023-03-04] MEDS: HEPARIN SODIUM, PORCINE 5000 UNITS/1 ML VIAL SQ SCH (08:51)
[2023-03-04] MEDS: APIXABAN 2.5 MG TABLET PO SCH ×2 (09:00→16:29)
[2023-03-04 09:54] VITALS: BP 130/72
[2023-03-04 13:12] VITALS: BP 128/61
--- NOTE | 2023-03-04 15:00 | NUR ---
RN NOTES APIXABAN 0900H DOSE NOT ADMINISTERED HEPARIN WAS ADMINISTERED AT 0900H, PHARMACY AWARE.
[2023-03-04 17:35] VITALS: BP 123/60
--- NOTE | 2023-03-04 19:45 | NUR ---
FLUX PLANT OPERATOR CLOSING NOTE PATIENT IN BED, AWAKE, ALERT & ORIENTED X 2-3. PATIENT ON 1 LITER OF OXYGEN VIA NC, NO S/S OF RESPIRATORY DISTRESS NOTED, O2 AT 1LPM SATURATION 97%.ON TELE MONITOR, SR HR 71. IV ACCESSES ON LFA GAUGE 20 AND LEFT HAND GAUGE 22, BOTH PATENT AND INTACT, FLUSHING WELL. RIGHT UPPER ARM WITH AV FISTULA, BRUIT IS AUDIBLE UPON AUSCULTATION, NO BLEEDING NOTED AT THE SITE. BLE WEAKNESS. NO SIGNIFICANT CHANGES NOTED ALL THROUGHOUT THE SHIFT, PATIENT'S DAUGHTER ON BEDSIDE SINCE MORNING, PATIENT SEEMS PLEASANT AND DENIES ANY PAIN OR DISCOMFORT. BED LOCKED IN LOWEST POSITION, SR UP X2, HOB ELEVATED, SCD PUMPS PLACED ON BOTH LEGS, CALL LIGHT AND BELONGINGS ARE WITHIN REACH. WILL ENDORSED TO NEXT NURSE FOR MARIE.
[2023-03-04 20:00] VITALS: BP 129/62
--- NOTE | 2023-03-04 20:00 | NUR ---
CULTURIST NOTE RECEIVED PATIENT IN BED, AWAKE, ALERT & ORIENTED X 2-3. CZECH SPEAKING .PATIENT ON 1 LITERS OF OXYGEN VIA NC, NO S/S OF RESPIRATORY DISTRESS. NSR ON THE MONITOR. V/S STABLE AFEBRILE .IV ACCESSES ON LFA GAUGE 20 AND LEFT HAND GAUGE 22, BOTH PATENT AND INTACT, FLUSHED WELL. RIGHT UPPER ARM WITH AV FISTULA, BRUIT IS AUDIBLE UPON AUSCULTATION, NO BLEEDING NOTED AT THE SITE. FAMILY AT BEDSIDE UPDATED WITH PTS CURRENT CONDITION . BED LOCKED IN LOWEST POSITION, SR UP X2, HOB ELEVATED, SCD PUMPS PLACED ON BOTH LEGS, CALL LIGHT AND BELONGINGS ARE WITHIN REACH. WILL CONTINUE TO MONITOR.
[2023-03-04] MEDS: LEVETIRACETAM (250 MG) 250 MG TABLET PO SCH (20:45)
[2023-03-04] MEDS: GABAPENTIN 300 MG CAPSULE PO SCH (21:16)
[2023-03-04] MEDS: LATANOPROST EYE DROP 0.005% 2.5 ML BOTTLE EACHEYE SCH (21:16)
[2023-03-05] VITALS: BP 150/67
--- NOTE | 2023-03-05 03:00 | NUR ---
telesales advisor notes Pts noted pulled out peripheral Line , reinserted G22 on left hand intact and patent. will continue to monitor pts.
[2023-03-05 04:00] VITALS: BP 139/67
--- NOTE | 2023-03-05 06:04 | NUR ---
UNIVERSITY RELATIONS DIRECTOR CLOSING NOTE PATIENT IN BED, AWAKE, ALERT & ORIENTED X 2-3.BULGARIAN SPEAKING WITH PERIOD OF CONFUSION PATIENT ON 1 LITER OF OXYGEN VIA NC, NO S/S OF RESPIRATORY DISTRESS NOTED, O2 AT 1LPM SATURATION 97%.ON TELE MONITOR, SR HR 75. IV ACCESSES LEFT HAND GAUGE 22, PATENT AND INTACT, FLUSHING WELL. RIGHT UPPER ARM WITH AV FISTULA, BRUIT IS AUDIBLE UPON AUSCULTATION, NO BLEEDING NOTED AT THE SITE. BLE WEAKNESS. NO SIGNIFICANT CHANGES NOTED ALL THROUGHOUT THE SHIFT, BED LOCKED IN LOWEST POSITION, SR UP X2, HOB ELEVATED, SCD PUMPS PLACED ON BOTH LEGS, CALL LIGHT AND BELONGINGS ARE WITHIN REACH. WILL ENDORSED TO NEXT NURSE FOR MARIE.
[2023-03-05 06:16] LABS: BASOPHILS % (AUTO) 0.5 % (0.0-2.0); EOSINOPHILS % (AUTO) 1.6 % (0.0-6.0); HEMATOCRIT 35 % (33-45); HEMOGLOBIN 11.1 g/dL (11.5-14.8); LYMPHOCYTES # (AUTO) 1.2 K/uL (0.8-4.8); LYMPHOCYTES % (AUTO) 13.6 % (20.0-44.0); MEAN CORPUSCULAR HGB CONC 31 g/dl (31.0-36.0); MEAN CORPUSCULAR VOLUME 99 fL (82-100); MONOCYTES # (AUTO) 0.9 K/uL (0.1-1.30); MONOCYTES % (AUTO) 10.3 % (2.0-12.0); NEUTROPHILS # (AUTO) 6.5 K/uL (1.8-8.9); PLATELET COUNT (AUTO) 161 K/uL (150-450); RED BLOOD CELL COUNT(AUTO) 3.56 MIL/uL (4.0-5.2); WHITE BLOOD COUNT (AUTO) 8.8 K/uL (4.3-11.0)
[2023-03-05 06:46] LABS: CALCIUM, SERUM 8.9 mg/dL (8.5-10.1); CARBON DIOXIDE 19 mmol/L (21-32); CHLORIDE 105 mmol/L (98-107); GLUCOSE 111 mg/dL (74-106); MAGNESIUM 2.3 mg/dL (1.8-2.4); PHOSPHORUS 3.8 mg/dL (2.5-4.9); POTASSIUM 4.7 mmol/L (3.5-5.1); SODIUM SERUM 140 mmol/L (136-145); UREA NITROGEN, BLOOD 35 mg/dL (7-18)
[2023-03-05 06:52] LABS: CREATININE 7.9 mg/dL (0.6-1.3)
--- NOTE | 2023-03-05 07:15 | NUR ---
DIABETES TRAINER OPEN NOTE: ALERT AND ORIENTED TO NAME, TIME, REORIENTED TO PLACE AND SITUATION. ON 02 1 LITER NASAL CANNULA SATING AT 96%. PARI MUTUEL TICKET CASHIER SINUS RHYTHM 90. IV ON LEFT HAND G 22 SALINE LOCKED, PATENT, NO S/S OF COMPLICATIONS. RIGHT ARM AV FISTULA POSITIVE FOR BRUIT AND THRILL. NO S/S OF COMPLICATIONS. HOB ELEVATED. BILATERAL HALF SIDE RAILS UPX2. BED IN LOW POSITION, LOCKED, EXIT ALARM ON. CALL LIGHT IN REACH.
[2023-03-05 08:00] VITALS: BP 146/74
[2023-03-05] MEDS: PANTOPRAZOLE 40 MG TABLET.DR PO SCH (08:13)
[2023-03-05] MEDS: CARVEDILOL 6.25 MG TABLET PO SCH (08:14)
[2023-03-05] MEDS: LEVETIRACETAM (250 MG) 250 MG TABLET PO SCH (08:15)
[2023-03-05] MEDS: FERROUS SULFATE (325 MG) 325 MG/TAB TABLET PO SCH (08:15)
[2023-03-05] MEDS: MEGESTROL ACETATE 40 MG TABLET PO SCH (08:15)
[2023-03-05] MEDS: CINACALCET HCL 30 MG TABLET PO SCH (08:16)
[2023-03-05] MEDS: AMLODIPINE BESYLATE 5 MG TABLET PO SCH (08:16)
[2023-03-05] MEDS: CALCITRIOL 0.25 MCG CAPSULE PO SCH (08:16)
[2023-03-05] MEDS: APIXABAN 2.5 MG TABLET PO SCH (08:18)
--- NOTE | 2023-03-05 08:19 | NUR ---
Norvasc and coreg 0900 am dose held due to patient having HD. Per HD nurse to hold all BP meds at this time. BP 146/74 HR 82.
[2023-03-05] MEDS: ATORVASTATIN 40 MG TABLET PO SCH (08:21)
[2023-03-05 12:00] VITALS: BP 118/61
[2023-03-05] MEDS ORDERED: APIX2.5T PO ×2 (12:20→23:46)
[2023-03-05] MEDS ORDERED: LEVE250T2 PO (12:20)
--- NOTE | 2023-03-05 15:30 | NUR ---
RETACRIT NOT ADMINISTERED DUE TO NOT AVAILABLE AT THIS TIME PHARMACY INFORMED. RESIDENT GOING TO BE DISCHARGED.
--- NOTE | 2023-03-05 16:44 | NUR ---
IV ON LEFT HAND REMOVED. PATIENT IS ALERT AND ORIENTED TO TIME AND NAME. REORIENTED TO PLACE AND SITUATION. PATIENT DISCHARGE INSTRUCTIONS GIVEN TO DAUGHTER JOSLYN BURLESON AND PATIENT [phone], AND VERBALIZED UNDERSTANDING. PATIENT WITH RIGHT AV INTACT POSITIVE FOR BRUIT AND THRILL. DAUGHTER REQUESTED FOR PATIENT TO GO HOME WITH [facility] [address] [facility]. [phone]. PER CASE MANAGEMENT FOREIGN PATIENT OK TO GO HOME WITH PT FOR REHAB. AMBULANCE HERE REPORT GIVEN. RESIDENT DISCHARGED HOME [id number] [facility] [id number] VIA [facility] ACCOMPANIED BY 2 EMT'S. PRADIP.
[2023-03-05] MEDS ORDERED: LEVE500T9 PO (23:46)
== END 2023-03-05 16:13 | disposition home health service (06) | DRG 45 ==
LOC: ER 09:42 → TELE1 11:48
PROVIDERS: ADMIT Student in an Organized Health Care Education/Training Program; ATTEND Student in an Organized Health Care Education/Training Program
PROC: 5A1D70Z Performance of Urinary Filtration, Intermittent, Less than 6 Hours Per Day (ICD-10-PCS; principal; 2023-03-03)
DX: I63.09 Cerebral infarction due to thrombosis of other precerebral artery (principal); I21.4 Non-ST elevation (NSTEMI) myocardial infarction; G93.40 Encephalopathy, unspecified; I13.2 Hypertensive heart and chronic kidney disease with heart failure and with stage 5 chronic kidney disease, or end stage renal disease; N18.6 End stage renal disease; D63.8 Anemia in other chronic diseases classified elsewhere; R56.9 Unspecified convulsions; R29.810 Facial weakness; R29.705 NIHSS score 5; Z20.822 Contact with and (suspected) exposure to COVID-19; Z85.22 Personal history of malignant neoplasm of nasal cavities, middle ear, and accessory sinuses; M19.90 Unspecified osteoarthritis, unspecified site; Z79.82 Long term (current) use of aspirin; Z79.899 Other long term (current) drug therapy; E78.5 Hyperlipidemia, unspecified; I50.9 Heart failure, unspecified; I70.0 Atherosclerosis of aorta; J98.11 Atelectasis; M89.8X9 Other specified disorders of bone, unspecified site; E11.22 Type 2 diabetes mellitus with diabetic chronic kidney disease; W19.XXXA Unspecified fall, initial encounter; Y92.009 Unspecified place in unspecified non-institutional (private) residence as the place of occurrence of the external cause; Z86.73 Personal history of transient ischemic attack (TIA), and cerebral infarction without residual deficits; Z99.2 Dependence on renal dialysis; R47.1 Dysarthria and anarthria; I21.A1 Myocardial infarction type 2
CPT/HCPCS: 36415; 70450-TC; 70496-TC; 70498-TC; 70551-TC; 71045-TC; 80048-TC; 80061-TC; 80076-TC; 82728-TC; 82962-TC; 83540-TC; 83735-TC; 84100-TC; 84439-TC; 84443-TC; 84484-TC; 85025-TC; 85730-TC; 87081-TC; 90935-TC; 92526; 92611-TC; 93307-TC; 95819-TC; 97112-TC; 97116-TC; 97530-TC; A4216; A4223; A6403; C9803; G0378; J0885; J1644; J1953; J2060; J7030; J7050; P9047; Q9967

== ENCOUNTER 2023-03-11 14:23 | Emergency (ER) | payer MEDICARE, OTHER ==
[~2023-03-11] VITALS: Ht 167.6 cm; Wt 72.6 kg
[~2023-03-11 14:23] MED LIST changes: +ALBU18HF2 INH; +APIX2.5T PO; +CALC0.253 PO; +GABA300C PO; +LATA2.5D15 EACHEYE; +LEVE250T2 PO; +LEVE500T9 PO; +POLY15DR12 EACHEYE; -SEVE800T28 PO
--- NOTE | 2023-03-11 14:30 | NUR ---
[id number] HOME C/O WEAKNESS/DIZZINESS W/ NOTED LOW O2 SATURATION. THE PATIENT IS ALERT AND ORIENTED X3. IN ROOM AIR AND DENIES SOB. OXYGEN SATURATION IN ROOM AIR IS AT 97%. DENIES PAIN. THE PATIENT IS ATTACHED TO THE MONITOR. WARM BLANKET PROVIDED FOR COMFORT. WILL CONTINUE TO MONITOR THE PATIENT.
--- NOTE | 2023-03-11 14:59 | NUR ---
BLOOD SPECIMNE COLLECTED AND SENT TO THE LAB
[2023-03-11] MEDS ORDERED: MECLIZINE HCL 25 MG TABLET PO ONE (15:00)
[2023-03-11] MEDS ORDERED: MECLIZINE HCL 25 MG TABLET ONE (15:02)
[2023-03-11 15:12] LABS: BASOPHILS # (AUTO) 0.1 K/uL (0.0-0.2); BASOPHILS % (AUTO) 2.1 % (0.0-2.0); EOSINOPHILS % (AUTO) 4.3 % (0.0-6.0); HEMATOCRIT 31 % (33-45); HEMOGLOBIN 10.1 g/dL (11.5-14.8); LYMPHOCYTES # (AUTO) 1.6 K/uL (0.8-4.8); LYMPHOCYTES % (AUTO) 31.4 % (20.0-44.0); MEAN CORPUSCULAR HGB CONC 33 g/dl (31.0-36.0); MEAN CORPUSCULAR VOLUME 96 fL (82-100); MONOCYTES # (AUTO) 0.7 K/uL (0.1-1.30); MONOCYTES % (AUTO) 13.6 % (2.0-12.0); NEUTROPHILS # (AUTO) 2.5 K/uL (1.8-8.9); NEUTROPHILS % (AUTO) 48.6 % (43.0-81.0); PLATELET COUNT (AUTO) 271 K/uL (150-450); RED BLOOD CELL COUNT(AUTO) 3.22 MIL/uL (4.0-5.2); WHITE BLOOD COUNT (AUTO) 5.2 K/uL (4.3-11.0)
--- NOTE | 2023-03-11 15:57 | NUR ---
PAGED [facility] FOR PEER TO PEER CONSULT. WAITING FOR CALL BACK.
[2023-03-11 16:10] LABS: CALCIUM, SERUM 8.9 mg/dL (8.5-10.1); CARBON DIOXIDE 29 mmol/L (21-32); CHLORIDE 98 mmol/L (98-107); CREATININE 7.3 mg/dL (0.6-1.3); GLUCOSE 109 mg/dL (74-106); POTASSIUM 4.8 mmol/L (3.5-5.1); SODIUM SERUM 137 mmol/L (136-145); UREA NITROGEN, BLOOD 38 mg/dL (7-18)
[2023-03-11 16:22] LABS: ALANINE AMINOTRANSFERASE 14 U/L (12-78); ALBUMIN 2.9 g/dL (3.4-5.0); ALKALINE PHOSPHATASE 232 U/L (46-116); ASPARTATE AMINOTRANSFERASE 11 U/L (15-37); BILIRUBIN,DIRECT 0.1 mg/dL (0.0-0.2); BILIRUBIN,TOTAL 0.3 mg/dL (0.2-1.0); TOTAL PROTEIN, SERUM 6.4 g/dL (6.4-8.2)
--- NOTE | 2023-03-11 16:56 | NUR ---
[facility] TRANSPORT ARRANGED. ETA 1830.
--- NOTE | 2023-03-11 17:00 | NUR ---
NO NEED FOR COVID SWAB PER DR RAMIRES BECAUSE THE PATIENT IS GETTING DISCHARGED.
--- NOTE | 2023-03-11 19:04 | NUR ---
CALLED [facility] FOR UPDATED TRANSPORT TIME. CREW 5 MIN AWAY.
--- NOTE | 2023-03-11 19:13 | NUR ---
Patient discharged to home in stable condition. Written and verbal after care instructions given. Patient verbalizes understanding of instruction.
[2023-03-11 19:14] VITALS: BP 110/58
== END 2023-03-11 19:14 | disposition home or self-care (01) ==
LOC: ER 14:25
DX: R53.1 Weakness (principal); I12.9 Hypertensive chronic kidney disease with stage 1 through stage 4 chronic kidney disease, or unspecified chronic kidney disease; N18.9 Chronic kidney disease, unspecified; E78.5 Hyperlipidemia, unspecified; Z99.2 Dependence on renal dialysis; Z79.82 Long term (current) use of aspirin; Z79.899 Other long term (current) drug therapy; Z98.890 Other specified postprocedural states
CPT/HCPCS: 99285; 70450; 71045; 93005; 85025; 80048; 80076; 36415; 84484; 87081; 83880; 82962; J8597

== ENCOUNTER 2023-03-18 12:15 | Emergency (ER) | payer MEDICARE, OTHER ==
[~2023-03-18] VITALS: Ht 165.1 cm; Wt 61.2 kg
--- NOTE | 2023-03-18 12:25 | NUR ---
HEADACHE AND FACE PAIN, S/P [facility] THIS MORNING, NO LOC
--- NOTE | 2023-03-18 12:27 | NUR ---
SEEN BY DR PAIGE, ORDERS FOR IMAGING AND TYLENOL PLACED
[2023-03-18] MEDS ORDERED: ACETAMINOPHEN ES 500 MG TABLET PO ONE (12:30)
[2023-03-18] MEDS ORDERED: ACETAMINOPHEN ES 500 MG TABLET ONE (13:39)
--- NOTE | 2023-03-18 14:20 | NUR ---
Patient discharged to home in stable condition. Written and verbal after care instructions given. Patient verbalizes understanding of instruction.
[2023-03-18 14:22] VITALS: BP 91/61
== END 2023-03-18 14:22 | disposition home or self-care (01) ==
LOC: ER 12:30
DX: S00.83XA Contusion of other part of head, initial encounter (principal); E78.5 Hyperlipidemia, unspecified; I12.0 Hypertensive chronic kidney disease with stage 5 chronic kidney disease or end stage renal disease; N18.6 End stage renal disease; Z99.2 Dependence on renal dialysis; Z79.899 Other long term (current) drug therapy; Z79.82 Long term (current) use of aspirin; W18.39XA Other fall on same level, initial encounter; Y93.89 Activity, other specified; Y92.89 Other specified places as the place of occurrence of the external cause; Y99.8 Other external cause status
CPT/HCPCS: 70450-TC; 70486-TC; 72125-TC

== ENCOUNTER 2024-06-14 19:27 | Emergency (ER) | payer MEDICARE, OTHER ==
[~2024-06-14] VITALS: Ht 157.5 cm; Wt 63.0 kg
[2024-06-14 20:45] VITALS: TEMP 98.4
[2024-06-14 23:07] VITALS: BP 135/64; O2SAT 99
== END 2024-06-14 23:09 | disposition home or self-care (01) ==
LOC: ER 19:43
DX: S09.8XXA Other specified injuries of head, initial encounter (principal); M54.2 Cervicalgia; R07.89 Other chest pain; I12.9 Hypertensive chronic kidney disease with stage 1 through stage 4 chronic kidney disease, or unspecified chronic kidney disease; N18.9 Chronic kidney disease, unspecified; E78.5 Hyperlipidemia, unspecified; M19.90 Unspecified osteoarthritis, unspecified site; Z99.2 Dependence on renal dialysis; Z87.09 Personal history of other diseases of the respiratory system; Z85.22 Personal history of malignant neoplasm of nasal cavities, middle ear, and accessory sinuses; Z86.59 Personal history of other mental and behavioral disorders; Z87.39 Personal history of other diseases of the musculoskeletal system and connective tissue; W01.0XXA Fall on same level from slipping, tripping and stumbling without subsequent striking against object, initial encounter; Y93.89 Activity, other specified; Y92.098 Other place in other non-institutional residence as the place of occurrence of the external cause; Y99.8 Other external cause status
CPT/HCPCS: 70450-TC; 71045-TC; 72125-TC

== ENCOUNTER 2024-08-16 17:15 | Emergency (ER) | payer MEDICARE, OTHER ==
[~2024-08-16] VITALS: Ht 157.5 cm; Wt 64.4 kg
[2024-08-16 17:43] VITALS: TEMP 98.3
[2024-08-16] MEDS ORDERED: ACETAMINOPHEN ES 500 MG TABLET ONE (18:13)
[2024-08-16] MEDS: ACETAMINOPHEN ES 500 MG TABLET PO ONE (18:15)
[2024-08-16 19:51] VITALS: BP 121/66; O2SAT 100
== END 2024-08-16 19:53 | disposition home or self-care (01) ==
LOC: ER 17:32
DX: S80.01XA Contusion of right knee, initial encounter (principal); S09.8XXA Other specified injuries of head, initial encounter; M25.561 Pain in right knee; E78.5 Hyperlipidemia, unspecified; I12.0 Hypertensive chronic kidney disease with stage 5 chronic kidney disease or end stage renal disease; N18.6 End stage renal disease; Z79.01 Long term (current) use of anticoagulants; Z79.621 Long term (current) use of calcineurin inhibitor; Z79.82 Long term (current) use of aspirin; Z79.899 Other long term (current) drug therapy; Z99.2 Dependence on renal dialysis; W01.0XXA Fall on same level from slipping, tripping and stumbling without subsequent striking against object, initial encounter; Y93.89 Activity, other specified; Y92.89 Other specified places as the place of occurrence of the external cause; Y99.8 Other external cause status
CPT/HCPCS: 70450-TC; 73564-TC

== ENCOUNTER 2024-12-17 21:04 | Inpatient (IN) | payer MEDICARE, OTHER ==
[~2024-12-17] VITALS: Ht 157.5 cm; Wt 63.5 kg
[2024-12-17 21:59] LABS: BASOPHILS # (AUTO) 0.1 K/uL (0.0-0.2); BASOPHILS % (AUTO) 1.5 % (0.0-2.0); EOSINOPHILS # (AUTO) 0.1 K/uL (0.0-0.7); EOSINOPHILS % (AUTO) 1.5 % (0.0-6.0); HEMATOCRIT 32 % (33-45); HEMOGLOBIN 10.2 g/dL (11.5-14.8); LYMPHOCYTES # (AUTO) 1.3 K/uL (0.8-4.8); LYMPHOCYTES % (AUTO) 17.5 % (20.0-44.0); MEAN CORPUSCULAR HEMOGLOBIN 32 PG (26.0-33.0); MEAN CORPUSCULAR HGB CONC 32 g/dl (31.0-36.0); MEAN CORPUSCULAR VOLUME 101 fL (82-100); MONOCYTES # (AUTO) 0.4 K/uL (0.1-1.30); MONOCYTES % (AUTO) 6.1 % (2.0-12.0); NEUTROPHILS # (AUTO) 5.4 K/uL (1.8-8.9); NEUTROPHILS % (AUTO) 73.4 % (43.0-81.0); PLATELET COUNT (AUTO) 213 K/uL (150-450); RED BLOOD CELL COUNT(AUTO) 3.15 MIL/uL (4.0-5.2); WHITE BLOOD COUNT (AUTO) 7.3 K/uL (4.3-11.0)
[2024-12-17 22:20] LABS: ALBUMIN 3.3 g/dL (3.4-5.0); ALKALINE PHOSPHATASE 433 U/L (46-116); ASPARTATE AMINOTRANSFERASE 18 U/L (15-37); BILIRUBIN,TOTAL 0.6 mg/dL (0.2-1.0); CALCIUM, SERUM 7.7 mg/dL (8.5-10.1); CARBON DIOXIDE 25 mmol/L (21-32); CHLORIDE 100 mmol/L (98-107); GLUCOSE 127 mg/dL (74-106); POTASSIUM 3.9 mmol/L (3.5-5.1); SODIUM SERUM 139 mmol/L (136-145); TOTAL PROTEIN, SERUM 6.9 g/dL (6.4-8.2); UREA NITROGEN, BLOOD 33 mg/dL (7-18)
[2024-12-17 22:32] LABS: ALANINE AMINOTRANSFERASE 6 U/L (12-78); BILIRUBIN,DIRECT 0.2 mg/dL (0.0-0.2)
[2024-12-17 22:33] LABS: CREATININE 8.2 mg/dL (0.6-1.3)
[2024-12-17 22:55] LABS: ABG BASE EXCESS 0.5 mmol/L (-2.0-3.0); ABG OXYGEN SATURATION 87.2 % (94.0-98.0); ABG PH 7.513 (7.350-7.450); ABG PO2 53.7 mmHg (83.0-108.0); ABG TOTAL HEMOGLOBIN 10.6 G/dL (12.0-16.0); COHb 0.2 % (0.5-1.5); MetHb 0.5 % (0.0-1.5); O2Hb 86.6 % (94.0-97.0); SITE, ABG LEFT BRACHIAL
[2024-12-18] MEDS ORDERED: ONDANSETRON HCL/PF 4 MG/2 ML VIAL IVP PRN (00:30)
[2024-12-18] MEDS ORDERED: Z GUARD REMEDY 4 OZ OINT TP PRN (00:30)
[2024-12-18] MEDS ORDERED: ZOLPIDEM TARTRATE 5 MG TABLET PO PRN (00:30)
[2024-12-18] MEDS ORDERED: DONE10TA44 PO (04:48)
[2024-12-18] MEDS ORDERED: CLOP75TA15 PO (04:48)
[2024-12-18] MEDS ORDERED: MIDO2.5T PO (04:48)
[2024-12-18] MEDS ORDERED: CYCL30DR OP (04:48)
[2024-12-18] MEDS: PANTOPRAZOLE 40 MG TABLET.DR PO SCH (08:53)
[2024-12-18] MEDS: HEPARIN SODIUM, PORCINE 5000 UNITS/1 ML VIAL SQ SCH (08:54)
[2024-12-18 09:00] VITALS: BP 156/84; TEMP 98.2; O2SAT 98
[2024-12-18] MEDS: LEVOFLOXACIN (250MG) 250 MG TABLET PO SCH (10:19)
[2024-12-18] MEDS: MIDODRINE HCL 2.5 MG TABLET PO SCH (10:30)
[2024-12-18] MEDS: LEVETIRACETAM (250 MG) 250 MG TABLET PO SCH (10:52)
[2024-12-18] MEDS: CLOPIDOGREL BISULFATE 75 MG TABLET PO SCH (10:52)
[2024-12-18 13:00] VITALS: BP 154/85; TEMP 97.9; O2SAT 96
[2024-12-18 17:00] VITALS: BP 155/91; TEMP 97.9; TEMP 98.2; O2SAT 98
[2024-12-18] MEDS: MIDODRINE HCL (5MG) 5 MG TABLET PO SCH (17:00)
[2024-12-18] MEDS: ACETAMINOPHEN 325 MG TABLET PO PRN (19:24)
[2024-12-18 21:00] VITALS: BP 135/70; TEMP 98.2; O2SAT 98
[2024-12-18] MEDS: DONEPEZIL 5 MG TABLET PO SCH (23:39)
[2024-12-18] MEDS: GABAPENTIN 300 MG CAPSULE PO SCH (23:40)
[2024-12-18] MEDS: LATANOPROST EYE DROP 0.005% 2.5 ML BOTTLE EACHEYE SCH (23:44)
[2024-12-19 01:00] VITALS: BP 139/80; TEMP 98.2; O2SAT 99
[2024-12-19 05:00] VITALS: BP 155/83; TEMP 99.3; O2SAT 100
[2024-12-19 07:33] LABS: BASOPHILS % (AUTO) 0.8 % (0.0-2.0); EOSINOPHILS # (AUTO) 0.1 K/uL (0.0-0.7); EOSINOPHILS % (AUTO) 2.4 % (0.0-6.0); HEMATOCRIT 29 % (33-45); HEMOGLOBIN 9.6 g/dL (11.5-14.8); LYMPHOCYTES # (AUTO) 1.4 K/uL (0.8-4.8); LYMPHOCYTES % (AUTO) 24.9 % (20.0-44.0); MEAN CORPUSCULAR HEMOGLOBIN 34 PG (26.0-33.0); MEAN CORPUSCULAR HGB CONC 33 g/dl (31.0-36.0); MEAN CORPUSCULAR VOLUME 101 fL (82-100); MONOCYTES # (AUTO) 0.5 K/uL (0.1-1.30); MONOCYTES % (AUTO) 8.7 % (2.0-12.0); NEUTROPHILS # (AUTO) 3.5 K/uL (1.8-8.9); NEUTROPHILS % (AUTO) 63.2 % (43.0-81.0); PLATELET COUNT (AUTO) 180 K/uL (150-450); RED BLOOD CELL COUNT(AUTO) 2.86 MIL/uL (4.0-5.2); RED CELL DISTRIBUTION WIDTH 14.5 % (11.5-15.0); WHITE BLOOD COUNT (AUTO) 5.6 K/uL (4.3-11.0)
[2024-12-19 07:48] LABS: CALCIUM, SERUM 8.4 mg/dL (8.5-10.1); CREATININE 6.4 mg/dL (0.6-1.3); MAGNESIUM 2.3 mg/dL (1.8-2.4); PHOSPHORUS 3.8 mg/dL (2.5-4.9); POTASSIUM 4.4 mmol/L (3.5-5.1)
[2024-12-19 08:17] LABS: THYROID STIMULATING HORMONE 0.91 uIU/mL (0.358-3.74)
[2024-12-19 09:00] VITALS: BP 141/82; TEMP 98.1; O2SAT 96
[2024-12-19] MEDS: ATORVASTATIN 40 MG TABLET PO SCH (09:05)
[2024-12-19] MEDS: CINACALCET HCL 30 MG TABLET PO SCH (09:06)
[2024-12-19 11:53] VITALS: BP 123/68; TEMP 98.1; O2SAT 98
[2024-12-19 17:06] VITALS: BP 129/73; TEMP 98.1; O2SAT 96
[2024-12-19 20:00] VITALS: BP 135/76; TEMP 97.5; O2SAT 100
[2024-12-20] VITALS: BP 128/68; TEMP 98.2; O2SAT 98
[2024-12-20 04:00] VITALS: BP 145/71; TEMP 97.9; O2SAT 100
[2024-12-20 08:00] VITALS: BP 113/69; TEMP 98.4; O2SAT 100
[2024-12-20 08:35] LABS: CALCIUM, SERUM 8.2 mg/dL (8.5-10.1); CREATININE 5.6 mg/dL (0.6-1.3); MAGNESIUM 2.4 mg/dL (1.8-2.4); PHOSPHORUS 3.1 mg/dL (2.5-4.9)
[2024-12-20 10:03] LABS: BASOPHILS % (AUTO) 0.5 % (0.0-2.0); EOSINOPHILS # (AUTO) 0.2 K/uL (0.0-0.7); EOSINOPHILS % (AUTO) 3.9 % (0.0-6.0); HEMATOCRIT 33 % (33-45); HEMOGLOBIN 10.8 g/dL (11.5-14.8); LYMPHOCYTES # (AUTO) 1.7 K/uL (0.8-4.8); LYMPHOCYTES % (AUTO) 32.7 % (20.0-44.0); MEAN CORPUSCULAR HEMOGLOBIN 33 PG (26.0-33.0); MEAN CORPUSCULAR HGB CONC 33 g/dl (31.0-36.0); MEAN CORPUSCULAR VOLUME 100 fL (82-100); MONOCYTES # (AUTO) 0.5 K/uL (0.1-1.30); MONOCYTES % (AUTO) 9.3 % (2.0-12.0); NEUTROPHILS # (AUTO) 2.8 K/uL (1.8-8.9); NEUTROPHILS % (AUTO) 53.6 % (43.0-81.0); PLATELET COUNT (AUTO) 201 K/uL (150-450); RED BLOOD CELL COUNT(AUTO) 3.31 MIL/uL (4.0-5.2); RED CELL DISTRIBUTION WIDTH 14.7 % (11.5-15.0); WHITE BLOOD COUNT (AUTO) 5.3 K/uL (4.3-11.0)
[2024-12-20 12:00] VITALS: BP 127/61; TEMP 97.9; O2SAT 100
[2024-12-20 16:00] VITALS: BP 127/61; TEMP 97.9; O2SAT 100
[2024-12-20] MEDS: MAGNESIUM HYDROXIDE 30 ML UDC PO PRN (18:30)
[2024-12-20 20:00] VITALS: BP 110/69; TEMP 97.7; O2SAT 100
[2024-12-21] VITALS: BP 121/67; TEMP 97.9; O2SAT 100
[2024-12-21 04:00] VITALS: BP 118/82; TEMP 97.7; O2SAT 100
[2024-12-21 05:12] LABS: HEPATITIS B CORE AB, IgM Negative (Negative); HEPATITIS B CORE AB, TOTAL Negative (Negative); HEPATITIS B SURFACE AB Reactive (.)
[2024-12-21 07:33] LABS: CALCIUM, SERUM 7.8 mg/dL (8.5-10.1); CREATININE 7.3 mg/dL (0.6-1.3); MAGNESIUM 2.3 mg/dL (1.8-2.4); PHOSPHORUS 4.1 mg/dL (2.5-4.9); POTASSIUM 4.2 mmol/L (3.5-5.1)
[2024-12-21 07:38] LABS: BASOPHILS % (AUTO) 0.6 % (0.0-2.0); EOSINOPHILS # (AUTO) 0.3 K/uL (0.0-0.7); EOSINOPHILS % (AUTO) 6.2 % (0.0-6.0); HEMATOCRIT 30 % (33-45); HEMOGLOBIN 10.1 g/dL (11.5-14.8); LYMPHOCYTES # (AUTO) 1.5 K/uL (0.8-4.8); LYMPHOCYTES % (AUTO) 31.6 % (20.0-44.0); MEAN CORPUSCULAR HEMOGLOBIN 33 PG (26.0-33.0); MEAN CORPUSCULAR HGB CONC 33 g/dl (31.0-36.0); MEAN CORPUSCULAR VOLUME 100 fL (82-100); MONOCYTES # (AUTO) 0.4 K/uL (0.1-1.30); MONOCYTES % (AUTO) 8.7 % (2.0-12.0); NEUTROPHILS # (AUTO) 2.5 K/uL (1.8-8.9); NEUTROPHILS % (AUTO) 52.9 % (43.0-81.0); PLATELET COUNT (AUTO) 180 K/uL (150-450); RED BLOOD CELL COUNT(AUTO) 3.06 MIL/uL (4.0-5.2); RED CELL DISTRIBUTION WIDTH 14.3 % (11.5-15.0); WHITE BLOOD COUNT (AUTO) 4.8 K/uL (4.3-11.0)
[2024-12-21 08:00] VITALS: BP 136/68; TEMP 97.7; O2SAT 100
[2024-12-21 12:00] VITALS: BP 114/62; TEMP 97.7; O2SAT 100
[2024-12-21 16:00] VITALS: BP 104/64; TEMP 97.9; O2SAT 98
[2024-12-21 20:00] VITALS: BP 115/62; TEMP 98.1; O2SAT 98
[2024-12-22] VITALS: BP 123/70; TEMP 97.9; O2SAT 98
[2024-12-22 04:00] VITALS: BP 120/69; TEMP 98.1; O2SAT 99
[2024-12-22 08:00] VITALS: BP 120/63; TEMP 98.1; O2SAT 99
[2024-12-22 08:20] LABS: BASOPHILS % (AUTO) 0.8 % (0.0-2.0); EOSINOPHILS # (AUTO) 0.2 K/uL (0.0-0.7); EOSINOPHILS % (AUTO) 4.9 % (0.0-6.0); HEMATOCRIT 33 % (33-45); HEMOGLOBIN 10.7 g/dL (11.5-14.8); LYMPHOCYTES # (AUTO) 1.6 K/uL (0.8-4.8); LYMPHOCYTES % (AUTO) 32.5 % (20.0-44.0); MEAN CORPUSCULAR HEMOGLOBIN 33 PG (26.0-33.0); MEAN CORPUSCULAR HGB CONC 33 g/dl (31.0-36.0); MEAN CORPUSCULAR VOLUME 101 fL (82-100); MONOCYTES # (AUTO) 0.5 K/uL (0.1-1.30); MONOCYTES % (AUTO) 9.1 % (2.0-12.0); NEUTROPHILS # (AUTO) 2.6 K/uL (1.8-8.9); NEUTROPHILS % (AUTO) 52.7 % (43.0-81.0); PLATELET COUNT (AUTO) 178 K/uL (150-450); RED BLOOD CELL COUNT(AUTO) 3.23 MIL/uL (4.0-5.2); RED CELL DISTRIBUTION WIDTH 14.3 % (11.5-15.0)
[2024-12-22 08:49] LABS: CALCIUM, SERUM 8.4 mg/dL (8.5-10.1); CREATININE 4.9 mg/dL (0.6-1.3); MAGNESIUM 2.3 mg/dL (1.8-2.4); PHOSPHORUS 3.4 mg/dL (2.5-4.9); POTASSIUM 4.5 mmol/L (3.5-5.1)
[2024-12-22 12:00] VITALS: BP 108/62; TEMP 97.7; O2SAT 99
[2024-12-22 16:00] VITALS: BP 102/57; TEMP 97.9; O2SAT 99
[2024-12-22 20:00] VITALS: BP 121/79; TEMP 97.9; O2SAT 94
[2024-12-23] VITALS: BP 124/62; TEMP 98.1; O2SAT 94
[2024-12-23 04:00] VITALS: BP 124/62; TEMP 97.9; O2SAT 94
[2024-12-23 07:12] LABS: BASOPHILS % (AUTO) 0.6 % (0.0-2.0); EOSINOPHILS # (AUTO) 0.3 K/uL (0.0-0.7); EOSINOPHILS % (AUTO) 5.4 % (0.0-6.0); HEMATOCRIT 33 % (33-45); HEMOGLOBIN 10.8 g/dL (11.5-14.8); LYMPHOCYTES # (AUTO) 1.5 K/uL (0.8-4.8); LYMPHOCYTES % (AUTO) 30.5 % (20.0-44.0); MEAN CORPUSCULAR HEMOGLOBIN 33 PG (26.0-33.0); MEAN CORPUSCULAR HGB CONC 33 g/dl (31.0-36.0); MEAN CORPUSCULAR VOLUME 100 fL (82-100); MONOCYTES # (AUTO) 0.6 K/uL (0.1-1.30); MONOCYTES % (AUTO) 11.4 % (2.0-12.0); NEUTROPHILS # (AUTO) 2.6 K/uL (1.8-8.9); NEUTROPHILS % (AUTO) 52.1 % (43.0-81.0); PLATELET COUNT (AUTO) 169 K/uL (150-450); RED BLOOD CELL COUNT(AUTO) 3.28 MIL/uL (4.0-5.2); RED CELL DISTRIBUTION WIDTH 14.7 % (11.5-15.0)
[2024-12-23 07:47] LABS: CALCIUM, SERUM 8.1 mg/dL (8.5-10.1); CARBON DIOXIDE 28 mmol/L (21-32); CHLORIDE 101 mmol/L (98-107); CREATININE 4.4 mg/dL (0.6-1.3); GLUCOSE 91 mg/dL (74-106); MAGNESIUM 2.3 mg/dL (1.8-2.4); PHOSPHORUS 3.2 mg/dL (2.5-4.9); POTASSIUM 4.4 mmol/L (3.5-5.1); SODIUM SERUM 141 mmol/L (136-145); UREA NITROGEN, BLOOD 18 mg/dL (7-18)
[2024-12-23 08:00] VITALS: BP 121/66; TEMP 98.4; O2SAT 100
[2024-12-23] MEDS: MAG HYDROX/AL HYDROX/SIMETH 30 ML UDC PO PRN (15:49)
[2024-12-23 16:00] VITALS: BP 119/70; TEMP 98.1; O2SAT 100
[2024-12-23 21:00] VITALS: BP 121/61; TEMP 98.4; O2SAT 100
[2024-12-24 05:00] VITALS: BP 140/64; TEMP 98.2; O2SAT 100
[2024-12-24 08:00] VITALS: BP 142/85; TEMP 97.7; O2SAT 100
[2024-12-24 16:00] VITALS: BP 120/61; TEMP 97.7; O2SAT 95
[2024-12-24 16:43] VITALS: BP 120/61
== END 2024-12-24 18:51 | disposition home health service (06) | DRG 280 ==
LOC: ER 21:12 → TRANSITION 12-18 04:59 → TELE1 12-18 07:46 → MEDSG1 12-23 03:30
PROVIDERS: ATTEND Nurse Practitioner Acute Care
PROC: 5A1D70Z Performance of Urinary Filtration, Intermittent, Less than 6 Hours Per Day (ICD-10-PCS; principal; 2024-12-18)
DX: I13.2 Hypertensive heart and chronic kidney disease with heart failure and with stage 5 chronic kidney disease, or end stage renal disease (principal); I50.23 Acute on chronic systolic (congestive) heart failure; I21.A1 Myocardial infarction type 2; J96.01 Acute respiratory failure with hypoxia; N18.6 End stage renal disease; E44.1 Mild protein-calorie malnutrition; I42.9 Cardiomyopathy, unspecified; J20.9 Acute bronchitis, unspecified; E78.5 Hyperlipidemia, unspecified; E88.09 Other disorders of plasma-protein metabolism, not elsewhere classified; F03.90 Unspecified dementia, unspecified severity, without behavioral disturbance, psychotic disturbance, mood disturbance, and anxiety; I27.20 Pulmonary hypertension, unspecified; M19.90 Unspecified osteoarthritis, unspecified site; Z79.01 Long term (current) use of anticoagulants; Z20.822 Contact with and (suspected) exposure to COVID-19; Z68.25 Body mass index [BMI] 25.0-25.9, adult; N25.0 Renal osteodystrophy; E11.22 Type 2 diabetes mellitus with diabetic chronic kidney disease; Z99.2 Dependence on renal dialysis; D50.9 Iron deficiency anemia, unspecified; Z79.899 Other long term (current) drug therapy
CPT/HCPCS: 36415; 36600; 71045-TC; 80048-TC; 80076-TC; 82803-TC; 83605-TC; 83735-TC; 83880; 84100-TC; 84443-TC; 84484-TC; 85025-TC; 86704; 86705; 86706; 86803; 87040-TC; 87081-TC; 87340; 90935-TC; 93307-TC; 94799-TC; 97110-TC; 97116-TC; 97530-TC; A4629; G0378; J1644; J7030

== ENCOUNTER 2025-08-10 13:19 | Inpatient (IN) | payer MEDICARE, OTHER ==
[2025-08-09 20:28] VITALS: BP 165/73; TEMP 98.1; O2SAT 98
[~2025-08-10] VITALS: Ht 162.6 cm; Wt 59.0 kg
[~2025-08-10 13:19] MED LIST changes: -ALBU18HF2 INH; -AMLO-212 PO; -APIX2.5T PO; -ASPI-1420 PO; -CALC0.253 PO; -CARV6.252 PO; +CLOP75TA15 PO; +DONE10TA44 PO; -FLUT16SP; -LEVE500T9 PO; -LINA145C PO; -MECL-173 PO; +MIDO2.5T PO; -PANT40TA49 PO; -POLY15DR12 EACHEYE
[2025-08-10 14:04] LABS: PLATELET COUNT (AUTO) 195 K/uL (150-450); RED BLOOD CELL COUNT(AUTO) 3.44 MIL/uL (4.0-5.2); RED CELL DISTRIBUTION WIDTH 13.1 % (11.5-15.0); WHITE BLOOD COUNT (AUTO) 6.9 K/uL (4.3-11.0)
[2025-08-10 14:09] LABS: CALCIUM, SERUM 9.9 mg/dL (8.5-10.1); CREATININE 4.1 mg/dL (0.6-1.3); SODIUM SERUM 135 mmol/L (136-145); UREA NITROGEN, BLOOD 18 mg/dL (7-18)
[2025-08-10 14:22] LABS: ASPARTATE AMINOTRANSFERASE 18 U/L (15-37); NT-PRO BNP > 25000 pg/mL (0-125); TOTAL PROTEIN, SERUM 6.9 g/dL (6.4-8.2)
[2025-08-10 14:31] LABS: EOSINOPHILS % (MANUAL) 2 % (0-4); LYMPHOCYTES % (MANUAL) 25 % (16-48); MONOCYTES % (MANUAL) 7 % (0-11.0); NEUTROPHILS % (MANUAL) 66 (42-76)
[2025-08-10 14:32] LABS: PLATELET ESTIMATE ADEQUATE
[2025-08-10] MEDS ORDERED: ONDA-97 PO (15:31)
[2025-08-10] MEDS ORDERED: SEVE800T8 PO (15:31)
[2025-08-10] MEDS ORDERED: [UNRECOGNIZED DRUG - OTHER] PO (15:31)
[2025-08-10] MEDS ORDERED: LOSA25TA27 PO (15:31)
[2025-08-10] MEDS ORDERED: LEVE500T9 PO (15:31)
[2025-08-10] MEDS ORDERED: CYAN10006 IJ (15:31)
[2025-08-10] MEDS ORDERED: MELO-105 PO (15:31)
[2025-08-10] MEDS ORDERED: PANT40TA49 PO (15:31)
[2025-08-10] MEDS ORDERED: CALC0.5C8 PO (15:31)
[2025-08-10] MEDS ORDERED: MAG HYDROX/AL HYDROX/SIMETH 30 ML UDC PO PRN (17:00)
[2025-08-10] MEDS ORDERED: Z GUARD REMEDY 4 OZ OINT TP PRN (17:00)
[2025-08-10] MEDS ORDERED: ONDANSETRON HCL/PF 4 MG/2 ML VIAL IVP PRN (17:00)
[2025-08-10] MEDS: LATANOPROST EYE DROP 0.005% 2.5 ML BOTTLE EACHEYE SCH (21:28)
[2025-08-10] MEDS: ACETAMINOPHEN 325 MG TABLET PO PRN (21:28)
[2025-08-10] MEDS: DONEPEZIL 5 MG TABLET PO SCH (21:29)
[2025-08-11] VITALS (7 sets, daily range): BP systolic 148–178; BP diastolic 60–91; TEMP 97.7–98.4; O2SAT 96–100
[2025-08-11] MEDS: hydrALAZINE HCL IV 20 MG VIAL IV PRN (06:18)
[2025-08-11] MEDS: GABAPENTIN 100 MG CAPSULE PO SCH ×2 (06:57→22:00)
[2025-08-11] MEDS: ATORVASTATIN 40 MG TABLET PO SCH (08:37)
[2025-08-11] MEDS: PANTOPRAZOLE 40 MG TABLET.DR PO SCH (08:37)
[2025-08-11] MEDS: CINACALCET HCL 30 MG TABLET PO SCH (08:37)
[2025-08-11] MEDS: LOSARTAN POTASSIUM 25 MG TABLET PO SCH (08:37)
[2025-08-11] MEDS: LEVETIRACETAM (250 MG) 250 MG TABLET PO SCH (08:37)
[2025-08-11] MEDS: CALCITRIOL 0.25 MCG CAPSULE PO SCH (08:37)
[2025-08-11] MEDS: MEGESTROL ACETATE 40 MG TABLET PO SCH (08:37)
[2025-08-11] MEDS: SEVELAMER CARBONATE 800 MG POWD.PACK PO SCH (08:37)
[2025-08-11] MEDS: FERROUS SULFATE (325 MG) 325 MG/TAB TABLET PO SCH (08:38)
[2025-08-11] MEDS: CLOPIDOGREL BISULFATE 75 MG TABLET PO SCH (08:38)
[2025-08-11] MEDS: MIDODRINE HCL (5MG) 5 MG TABLET PO SCH (08:38)
[2025-08-11 12:37] LABS: CALCIUM, SERUM 10.5 mg/dL (8.5-10.1); CREATININE 6.5 mg/dL (0.6-1.3); PHOSPHORUS 4.4 mg/dL (2.5-4.9); SODIUM SERUM 136.0 mmol/L (136-145); UREA NITROGEN, BLOOD 32.0 mg/dL (7-18)
[2025-08-11 13:26] LABS: PLATELET COUNT (AUTO) 167 K/uL (150-450); RED BLOOD CELL COUNT(AUTO) 3.16 MIL/uL (4.0-5.2); RED CELL DISTRIBUTION WIDTH 13.6 % (11.5-15.0); WHITE BLOOD COUNT (AUTO) 7.8 K/uL (4.3-11.0)
[2025-08-11] MEDS ORDERED: ONDANSETRON HCL/PF 4 MG/2 ML VIAL IV PRN (14:00)
[2025-08-11] MEDS: METOCLOPRAMIDE HCL 10 MG TABLET PO SCH (14:46)
[2025-08-11] MEDS: MAGNESIUM HYDROXIDE 30 ML UDC PO PRN (17:37)
[2025-08-12] VITALS: BP 149/90; TEMP 99.1; O2SAT 97
[2025-08-12 04:00] VITALS: BP 148/70; TEMP 98.4; O2SAT 97
[2025-08-12 08:00] VITALS: BP 155/74; TEMP 97.7; O2SAT 99
[2025-08-12 10:10] LABS: PLATELET COUNT (AUTO) 165 K/uL (150-450); RED BLOOD CELL COUNT(AUTO) 2.96 MIL/uL (4.0-5.2); RED CELL DISTRIBUTION WIDTH 13.2 % (11.5-15.0); WHITE BLOOD COUNT (AUTO) 7.0 K/uL (4.3-11.0)
[2025-08-12 10:28] LABS: ASPARTATE AMINOTRANSFERASE 18 U/L (15-37); CALCIUM, SERUM 10.4 mg/dL (8.5-10.1); PHOSPHORUS 5.0 mg/dL (2.5-4.9); SODIUM SERUM 139 mmol/L (136-145); TOTAL PROTEIN, SERUM 6.3 g/dL (6.4-8.2); UREA NITROGEN, BLOOD 42 mg/dL (7-18)
[2025-08-12 10:30] LABS: CREATININE 7.9 mg/dL (0.6-1.3)
[2025-08-12 20:00] VITALS: BP 156/68; TEMP 97.9; O2SAT 100
[2025-08-13] VITALS: BP 150/64; TEMP 97.5; O2SAT 100
[2025-08-13 04:00] VITALS: BP 160/64; TEMP 97.5; O2SAT 99
[2025-08-13 08:00] VITALS: BP 148/72; TEMP 98.8; O2SAT 98
[2025-08-13 11:30] VITALS: BP 140/64; TEMP 98.4; O2SAT 100
[2025-08-13 16:00] VITALS: BP 163/79; TEMP 98.1; O2SAT 98
[2025-08-13 20:00] VITALS: BP 145/77; TEMP 97.5; O2SAT 98
== END 2025-08-13 21:40 | disposition home health service (06) | DRG 100 ==
LOC: ER 14:06 → TELE 20:02
PROVIDERS: ADMIT Internal Medicine; ATTEND Internal Medicine
PROC: 5A1D70Z Performance of Urinary Filtration, Intermittent, Less than 6 Hours Per Day (ICD-10-PCS; principal; 2025-08-13)
DX: G40.909 Epilepsy, unspecified, not intractable, without status epilepticus (principal); I21.A1 Myocardial infarction type 2; N18.6 End stage renal disease; I13.2 Hypertensive heart and chronic kidney disease with heart failure and with stage 5 chronic kidney disease, or end stage renal disease; D63.8 Anemia in other chronic diseases classified elsewhere; Z99.2 Dependence on renal dialysis; F03.90 Unspecified dementia, unspecified severity, without behavioral disturbance, psychotic disturbance, mood disturbance, and anxiety; E11.22 Type 2 diabetes mellitus with diabetic chronic kidney disease; I50.22 Chronic systolic (congestive) heart failure; E87.1 Hypo-osmolality and hyponatremia; Z85.828 Personal history of other malignant neoplasm of skin; E78.5 Hyperlipidemia, unspecified; E83.89 Other disorders of mineral metabolism; Z79.899 Other long term (current) drug therapy
CPT/HCPCS: 36415; 70450-TC; 71045-TC; 80048-TC; 80053-TC; 80076-TC; 82962-TC; 83735-TC; 83880; 84100-TC; 84484-TC; 85025-TC; 85027-TC; 87081-TC; 93307-TC; 97110-TC; 97116-TC; 97530-TC; A6403; G0378; J0360; J7030; J8597

== ENCOUNTER 2025-08-25 20:09 | Inpatient (IN) | payer MEDICARE, OTHER ==
[~2025-08-25] VITALS: Ht 162.6 cm; Wt 58.5 kg
[~2025-08-25 20:09] MED LIST changes: +CALC0.5C8 PO; +CYAN10006 IJ; -LEVE250T2 PO; +LEVE500T9 PO; +LOSA25TA27 PO; +MELO-105 PO; +ONDA-97 PO; +PANT40TA49 PO; +SEVE800T8 PO; +[UNRECOGNIZED DRUG - OTHER] PO
[2025-08-25 21:11] LABS: PLATELET COUNT (AUTO) 204 K/uL (150-450); RED BLOOD CELL COUNT(AUTO) 3.47 MIL/uL (4.0-5.2); RED CELL DISTRIBUTION WIDTH 14.4 % (11.5-15.0); WHITE BLOOD COUNT (AUTO) 10.9 K/uL (4.3-11.0)
[2025-08-25 21:18] LABS: CALCIUM, SERUM 11.5 mg/dL (8.5-10.1); CREATININE 7.3 mg/dL (0.6-1.3); SODIUM SERUM 137 mmol/L (136-145); UREA NITROGEN, BLOOD 46 mg/dL (7-18)
[2025-08-25 21:24] LABS: ASPARTATE AMINOTRANSFERASE 16 U/L (15-37); INR 1.09 (0.91-1.10); TOTAL PROTEIN, SERUM 6.5 g/dL (6.4-8.2)
[2025-08-25 21:30] LABS: LACTIC ACID 2.0 mmol/L (0.4-2.0)
[2025-08-25 22:27] VITALS: O2SAT 97
[2025-08-25] MEDS ORDERED: MAG HYDROX/AL HYDROX/SIMETH 30 ML UDC PO PRN (23:00)
[2025-08-25] MEDS ORDERED: SODIUM ZIRCONIUM CYCLOSILICATE 10 GM POWD.PACK PO ONE (23:00)
[2025-08-25] MEDS ORDERED: ONDANSETRON HCL/PF 4 MG/2 ML VIAL IVP PRN (23:00)
[2025-08-25] MEDS ORDERED: ENOXAPARIN SODIUM 40 MG/0.4 ML DISP.SYRIN SQ SCH (23:00)
[2025-08-25] MEDS ORDERED: SODIUM BICARBONATE SYR 50 MEQ/50 ML DISP.SYRIN ONE (23:10)
[2025-08-25] MEDS ORDERED: CALCIUM CHLORIDE 1,000 MG/10 ML DISP.SYRIN ONE (23:10)
[2025-08-25] MEDS ORDERED: SODIUM ZIRCONIUM CYCLOSILICATE 10 GM POWD.PACK ONE (23:10)
[2025-08-25] MEDS: SODIUM BICARBONATE SYR 50 MEQ/50 ML DISP.SYRIN IV ONE (23:12)
[2025-08-25] MEDS: CALCIUM CHLORIDE 1,000 MG/10 ML DISP.SYRIN IV ONE (23:12)
[2025-08-25] MEDS: SODIUM ZIRCONIUM CYCLOSILICATE 10 GM POWD.PACK PO ONE (23:12)
[2025-08-25 23:39] VITALS: BP 130/59; TEMP 94.9; O2SAT 99
[2025-08-26] MEDS: HEPARIN SODIUM, PORCINE 5000 UNITS/1 ML VIAL SQ SCH (00:47)
[2025-08-26 04:00] VITALS: BP 150/63; TEMP 97.5; O2SAT 100
[2025-08-26 07:30] VITALS: BP 139/59; TEMP 98.1; O2SAT 100
[2025-08-26 08:03] LABS: PLATELET COUNT (AUTO) 166 K/uL (150-450); RED BLOOD CELL COUNT(AUTO) 3.28 MIL/uL (4.0-5.2); RED CELL DISTRIBUTION WIDTH 14.5 % (11.5-15.0); WHITE BLOOD COUNT (AUTO) 10.3 K/uL (4.3-11.0)
[2025-08-26 08:23] LABS: ASPARTATE AMINOTRANSFERASE 20 U/L (15-37); CALCIUM, SERUM 11.9 mg/dL (8.5-10.1); PHOSPHORUS 6.1 mg/dL (2.5-4.9); SODIUM SERUM 139 mmol/L (136-145); TOTAL PROTEIN, SERUM 6.3 g/dL (6.4-8.2); UREA NITROGEN, BLOOD 53 mg/dL (7-18)
[2025-08-26 08:28] LABS: CREATININE 7.9 mg/dL (0.6-1.3); IRON, SERUM 29 ug/dl (50-175)
[2025-08-26] MEDS ORDERED: Z GUARD REMEDY 4 OZ OINT TP PRN (08:30)
[2025-08-26] MEDS: PANTOPRAZOLE 40 MG VIAL IV SCH (08:48)
[2025-08-26] MEDS: Z GUARD REMEDY 4 OZ OINT TP SCH (09:38)
[2025-08-26] MEDS ORDERED: MELOXICAM 7.5 MG TABLET PO PRN (11:30)
[2025-08-26] MEDS ORDERED: DOSING PER PHARMACY-CEFEPIME IVPB XX PRN (11:30)
[2025-08-26] MEDS: FERROUS SULFATE (325 MG) 325 MG/TAB TABLET PO SCH (13:20)
[2025-08-26] MEDS: SEVELAMER CARBONATE 800 MG POWD.PACK PO SCH (13:23)
[2025-08-26] MEDS: CLOPIDOGREL BISULFATE 75 MG TABLET PO SCH (13:23)
[2025-08-26] MEDS: CEFEPIME 1 GM in IV D5W 50 ML IV SCH (14:33)
[2025-08-26 16:00] VITALS: BP 153/60; TEMP 97.9; O2SAT 100
[2025-08-26 16:19] LABS: BLOOD, URINE 3+ Ery/uL (NEGATIVE); LEUKOCYTE ESTERASE ,URINE 3+ (NEGATIVE); NITRITE, URINE NEGATIVE (NEGATIVE); UGLUCOSE TRACE mg/dL (NEGATIVE)
[2025-08-26 16:21] LABS: APPEARANCE,URINE CLOUDY (CLEAR)
[2025-08-26 16:35] LABS: ADD URINE CULTURE YES
[2025-08-26 16:36] LABS: SQUAMOUS EPITHELIAL CELL,UR Moderate /HPF (None Seen)
[2025-08-26] MEDS: MIDODRINE HCL (5MG) 5 MG TABLET PO SCH (17:00)
[2025-08-26] MEDS: CALCITRIOL 0.25 MCG CAPSULE PO SCH (17:10)
[2025-08-26] MEDS: MEGESTROL ACETATE 40 MG TABLET PO SCH (17:10)
[2025-08-26] MEDS: GABAPENTIN 300 MG CAPSULE PO SCH (17:10)
[2025-08-26 20:00] VITALS: BP 139/71; TEMP 97.7; O2SAT 97
[2025-08-26] MEDS: DONEPEZIL 5 MG TABLET PO SCH (21:26)
[2025-08-26] MEDS: LEVETIRACETAM (250 MG) 250 MG TABLET PO SCH (21:26)
[2025-08-27] VITALS (7 sets, daily range): BP systolic 110–130; BP diastolic 46–60; TEMP 97.6–98.1; O2SAT 96–100
[2025-08-27] MEDS: PANTOPRAZOLE 40 MG TABLET.DR PO SCH (06:50)
[2025-08-27] MEDS: LOSARTAN POTASSIUM 25 MG TABLET PO SCH (09:40)
[2025-08-27] MEDS: ATORVASTATIN 40 MG TABLET PO SCH (09:40)
[2025-08-27] MEDS: CINACALCET HCL 30 MG TABLET PO SCH (09:41)
[2025-08-27 10:33] LABS: CALCIUM, SERUM 11.3 mg/dL (8.5-10.1); SODIUM SERUM 136 mmol/L (136-145); UREA NITROGEN, BLOOD 70 mg/dL (7-18)
[2025-08-27 10:34] LABS: CREATININE 9.7 mg/dL (0.6-1.3)
[2025-08-28 08:00] VITALS: BP 125/49; TEMP 98.1; O2SAT 100
[2025-08-28] MEDS: ACETAMINOPHEN 325 MG TABLET PO PRN (11:19)
[2025-08-28 13:10] LABS: CALCIUM, SERUM 9.6 mg/dL (8.5-10.1); CREATININE 6.4 mg/dL (0.6-1.3); SODIUM SERUM 141.0 mmol/L (136-145); UREA NITROGEN, BLOOD 43.0 mg/dL (7-18)
[2025-08-28] MEDS: ALBUMIN 25% 25 GM in PREMIX 1 EA IV PRN (13:32)
[2025-08-28 16:00] VITALS: BP 105/59; TEMP 97.9; O2SAT 95
[2025-08-28 20:00] VITALS: BP 110/55; TEMP 97.5; O2SAT 97
[2025-08-28] MEDS: MAGNESIUM HYDROXIDE 30 ML UDC PO PRN (21:46)
[2025-08-29 07:47] LABS: CALCIUM, SERUM 10.6 mg/dL (8.5-10.1); CREATININE 5.2 mg/dL (0.6-1.3); SODIUM SERUM 143.0 mmol/L (136-145); UREA NITROGEN, BLOOD 31.0 mg/dL (7-18)
[2025-08-29 08:00] VITALS: BP 110/49; TEMP 97.4; O2SAT 97
[2025-08-29 09:01] VITALS: BP 110/49
== END 2025-08-29 14:15 | disposition home health service (06) | DRG 871 ==
LOC: ER 20:11 → TELE 21:44 → MED 08-27 12:19
PROVIDERS: ADMIT Nurse Practitioner Family; ATTEND Nurse Practitioner Acute Care
PROC: 5A1D70Z Performance of Urinary Filtration, Intermittent, Less than 6 Hours Per Day (ICD-10-PCS; principal; 2025-08-26)
DX: A41.9 Sepsis, unspecified organism (principal); G93.41 Metabolic encephalopathy; I21.A1 Myocardial infarction type 2; N18.6 End stage renal disease; I50.23 Acute on chronic systolic (congestive) heart failure; I13.2 Hypertensive heart and chronic kidney disease with heart failure and with stage 5 chronic kidney disease, or end stage renal disease; E44.1 Mild protein-calorie malnutrition; I42.9 Cardiomyopathy, unspecified; E88.09 Other disorders of plasma-protein metabolism, not elsewhere classified; D63.1 Anemia in chronic kidney disease; N39.0 Urinary tract infection, site not specified; Z99.2 Dependence on renal dialysis; F03.C0 Unspecified dementia, severe, without behavioral disturbance, psychotic disturbance, mood disturbance, and anxiety; B96.89 Other specified bacterial agents as the cause of diseases classified elsewhere; E11.22 Type 2 diabetes mellitus with diabetic chronic kidney disease; K76.0 Fatty (change of) liver, not elsewhere classified; G40.909 Epilepsy, unspecified, not intractable, without status epilepticus; D68.59 Other primary thrombophilia; T81.72XA Complication of vein following a procedure, not elsewhere classified, initial encounter; I95.9 Hypotension, unspecified; E78.5 Hyperlipidemia, unspecified; E87.5 Hyperkalemia; Z74.01 Bed confinement status; E83.52 Hypercalcemia; K21.9 Gastro-esophageal reflux disease without esophagitis; Z20.822 Contact with and (suspected) exposure to COVID-19; R53.1 Weakness; I25.10 Atherosclerotic heart disease of native coronary artery without angina pectoris; Z74.09 Other reduced mobility; I80.8 Phlebitis and thrombophlebitis of other sites; Y84.8 Other medical procedures as the cause of abnormal reaction of the patient, or of later complication, without mention of misadventure at the time of the procedure; Y92.230 Patient room in hospital as the place of occurrence of the external cause
CPT/HCPCS: 36415; 70450-TC; 71045-TC; 80048-TC; 80076-TC; 81001; 82962-TC; 83540-TC; 83605-TC; 83735-TC; 83970; 84100-TC; 84443-TC; 84484-TC; 85025-TC; 85730-TC; 86317; 87040-TC; 87086-TC; 87340; 90935-TC; 93971-TC; 97110-TC; 97530-TC; 97535-TC; A4216; A4223; G0378; J0692; J1644; J2470; J3490; J7030; J7050; J7060; P9047